=== PATIENT | female | born 1935 | race Caucasian/White ===

== ENCOUNTER 2023-11-25 10:22 | Outpatient (AMB) | payer MEDICARE, SELFPAY ==
--- NOTE | 2023-11-25 10:27 | MHC.PC.OV ---
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 Required: No Allergies morphine Allergy (Intermediate, Verified 11/25/23 10:32) Nausea Tobacco use date assessed: 11/25/23 Fall risk assessment: 2 + Falls in past year Last assessed Fall Risk: 11/25/23 Dental Screening Dental Screen Date: 11/25/23 Did you have a dental visit in the last 12 months?: Yes Did you have a dental problem in the last 6 months where you did not have access to dental care?: No Was dental information given to patient?: Patient has dentist HPI HPI Comments History of Present Illness Details This is an 88-year-old female with a past medical history of hypertension, hyperlipidemia, impaired fasting glucose, degenerative disc disease of the lumbar spine, dermatitis and right-sided back pain presenting to [facility]. She transferred from [facility] primary care. Hypertension-treated with atenolol 50 mg and amlodipine 5 mg. Denies dizziness, chest pain or shortness of breath. She brought a list of home readings: November 08 133/61, heart rate 56 November 10 123/71, heart rate 55 November 16 107/61, heart rate 64 November 17 125/70, heart rate 64 November 18 104/54, heart rate 57 November 20 123/67, heart rate 61 November 21 124/61, heart rate 63 November 23 126/70, heart rate 66 Hyperlipidemia-treated with atorvastatin 40 mg daily. Anxiety is treated with Lexapro 10 mg daily. This is working well. She found out yesterday her daughter was diagnosed with colon cancer. Right lower back pain/DISH-she is putting off physical therapy for now, but she still has the referral. She knows when to rest and how much activity to do to avoid increasing pain. Constipation-she tried Benefiber, she is increasing fiber in her diet and having fluids. She has an appointment with Gastroenterology in the next 2 weeks at [facility] for further evaluation. She says her last colonoscopy was a few years ago. She denies blood in her stools, abdominal pain, weight loss, nausea, vomiting. She had a CT scan of her abdomen and pelvis with IV contrast while at the ER in 07/30/2023 for abdominal pain which showed small bowel contents fecalized which was nonspecific and could be seen with slow small bowel transit, ileocecal valve reflux or SIBO. External labs reviewed from 06/29/2023: Hemoglobin A1c 5.2% Total cholesterol 165 Triglycerides 145 HDL 53 LDL 83 Creatinine 0.9 GFR 62 WBC 5.4 RBC 4.86 HGB 14.4 HCT 42.6 Platelet count 211 PFSH Medical History DISH (diffuse idiopathic skeletal hyperostosis) Impaired fasting glucose Right-sided low back pain without sciatica Constipation Hypertension Hyperlipidemia Family History (Updated 11/25/23 @ 11:02 by Bernadette Marsh) Mother HTN (hypertension) Thyroid disorder Father HTN (hypertension) Cardiovascular disease Alcohol abuse Maternal Grandfather Cardiovascular disease Thyroid disorder Other FH: mental illness Substance use [facility] Tobacco Use Status: Never used Tobacco e-Cigarette/Vaping Use: Never Used service: No Current occupational status: retired Current occupational exposures/hazards: No Cognitive needs: No Hearing needs: No Vision needs: Yes Questionnaire PHQ-9 Over the last 2 weeks, how often have you been bothered by any of the following problems? 1. Little interest or pleasure in doing things: not at all 2. Feeling down, depressed, or hopeless: not at all 3. Trouble falling or staying asleep, or sleeping too much: not at all 4. Feeling tired or having little energy: not at all 5. Poor appetite or overeating: not at all 6. Feeling bad about yourself - or that you are a failure or have let yourself or your family down: not at all 7. Trouble concentrating on things, such as reading the newspaper or watching television: not at all 8. Moving or speaking so slowly that other people could have noticed. Or the opposite - being so fidgety or restless that you have been moving around a lot more than usual: not at all 9. Thoughts that you would be better off or of hurting yourself in some way: not at all Total score: 0 Depression Screening Interpretation: Negative Depression Screening Done: Yes 95413 - PHQ-9 Billing: Yes Source: Developed by Drs. Deacon Arias, Shahida Leach, Bryan Cervantes and colleagues, with an educational zia from [employer]. Thrive Questionnaire Date Thrive assessed: 11/25/23 I am a: Patient What is your living situation today?: I have a steady place to live Within the past 12 months, did the food you bought not last and you didn't have the money to get more?: Never true Within the past 12 months, did you worry whether your food would run out before you got money to buy more?: Never true Do you have trouble paying for medicines?: No Do you have trouble getting transportation to medical appointments?: No Do you have trouble paying your heating and electricity bill?: Yes Do you have trouble taking care of your child, family member or friend?: No Do you have trouble with day-to-day activities such as bathing, preparing meals, shopping, managing finances, etc.?: No Are you currently unemployed and looking for a job?: No Are you interested in more education?: No Please select the resources that you would like help with: None Currently or been in a relationship where the following occur: no concerns reported THRIVE Score: 1 AUDIT C Alcohol Use Questionnaire (AUDIT-C) 1. How often do you have a drink containing alcohol?: Monthly or less 2. How many drinks containing alcohol do you have on a typical day when you are drinking?: 1 or 2 (one glass of wine a day) 3. How often do you have six or more drinks on one occasion?: Never Total Score: 1 PHONG-7 AMB Questionnaire PHONG-7 Date PHONG - 7 assessed: 11/25/23 Feeling nervous, anxious, or on edge: 1 = Several days Not being able to stop or control worryin = Several days Worrying too much about different things: 1 = Several days Trouble relaxin = Not at all Being so restless that it is hard to sit still: 0 = Not at all Becoming easily annoyed or irritable: 0 = Not at all Feeling afraid as if something awful might happen: 0 = Not at all Total PHONG-7 score (0-4 normal; 5-9 mild; 10-14 moderate; 15-21 severe): 3 Source: Developed by Drs. Deacon Arias, Shahida Leach, Bryan Cervantes and colleagues, with an educational zia from [employer]. PHONG-7 Assessment Billing PHONG-7 Assessment Tool: PHONG-7 Assessment 51413 Physical exam (Primary Care) Vital Signs: Last Vital Signs Temp 97 F 11/25/23 10:30 Pulse 60 11/25/23 11:08 BP 104/66 11/25/23 10:30 Oxygen Flow Rate 98 11/25/23 10:30 BMI result Body Mass Index 24.0 Tobacco/Smoking Status: Tobacco use Status Tobacco use date assessed 11/25/23 11/25/23 10:46 Patient Tobacco Use Status Never used Tobacco 11/25/23 10:46 e-Cigarette/Vaping Use Never Used 11/25/23 10:46 PHQ-9: PHQ-9 Score PHQ-9: Total score 0 11/25/23 10:59 Depression Screening Interpretation: Negative Thrive Assessment: Date of Thrive Assessment Date Thrive assessed 11/25/23 11/25/23 10:56 Currently or been in a relationship where the following occur: no concerns reported Const Other: Constitutional: Alert, in no distress. Head: Normocephalic. Eyes: Pupils are equal, round and reactive to light. Extraocular muscles intact. Neck: Supple, Full range of motion. No lymphadenopathy. Respiratory: Clear to auscultation. Cardiovascular: S1 S2 regular. No murmurs. Gastrointestinal: Abdomen soft, non-tender, non-distended. Normal bowel sounds. No palpable masses. Psychiatric: Normal mood and affect Assessment and Plan Assessment & Plan (1) Hypertension: Code(s): I10 - Essential (primary) hypertension Qualifiers: Hypertension type: primary hypertension Qualified Code(s): I10 - Essential (primary) hypertension Plan: Controlled. Continue current regimen. Continue low-sodium diet and avoidance of tobacco use. (2) Hyperlipidemia: Code(s): E78.5 - Hyperlipidemia, unspecified Plan: LDL at goal. Continue atorvastatin. Mediterranean diet recommended. (3) Constipation: Code(s): K59.00 - Constipation, unspecified Plan: Continue to stay hydrated and increase fiber and can use Benefiber or MiraLax. Reviewed CT results. Patient has an appointment coming up with Gastroenterology. (4) Impaired fasting glucose: Code(s): R73.01 - Impaired fasting glucose Plan: Avoid sugary foods and eat carbohydrates in moderation. Continue to monitor hemoglobin A1c. Orders: Orders Hemoglobin A1c 4 Months I10 - Essential (primary) hypertension, R73.01 - Impaired fasting glucose Basic Metabolic Panel 4 Months I10 - Essential (primary) hypertension, R73.01 - Impaired fasting glucose Coding Level of Care Code Est Pt Level 4 (29276) Diagnoses Primary hypertension I10 Hypertension type: primary hypertension Hyperlipidemia E78.5 Constipation K59.00 Impaired fasting glucose R73.01 Additional Codes PHONG-7 Assessment Billing - PHONG-7 Assessment Tool: PHONG-7 Assessment 10521 ([id number])
[2023-11-25 10:30] VITALS: BP 104/66; TEMP 36.1; BMI 24.0
[2023-11-25 11:08] VITALS: PULSE 60
== END 2023-11-25 11:19 | disposition home or self-care (01) ==
PROVIDERS: PCP Physician Assistant Medical; Visit Provider Physician Assistant Medical
DX: I10 Essential (primary) hypertension (principal); E78.5 Hyperlipidemia, unspecified; K59.00 Constipation, unspecified; R73.01 Impaired fasting glucose
CPT/HCPCS: 99214

== ENCOUNTER 2024-02-27 11:29 | Outpatient (AMB) | payer MEDICARE, SELFPAY ==
--- NOTE | 2024-02-27 11:31 | A.OFFPC_ITS ---
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 Required: No Is last menstrual period known: No Post menopausal: No Patient : No Allergies morphine Allergy (Intermediate, Verified 02/27/24 11:34) Nausea Tobacco use date assessed: 02/27/24 Fall risk assessment: 1 Fall in past year Last assessed Fall Risk: 02/27/24 Dental Screening Dental Screen Date: 02/27/24 Did you have a dental visit in the last 12 months?: Yes Did you have a dental problem in the last 6 months where you did not have access to dental care?: No Was dental information given to patient?: Patient has dentist HPI HPI Comments History of Present Illness Details This is an 88-year-old female with a past medical history of hypertension, hyperlipidemia, impaired fasting glucose, degenerative disc disease of the lumbar spine, dermatitis and right-sided back pain presenting for follow up. Hypertension-treated with atenolol 50 mg and amlodipine 5 mg. Denies dizziness, chest pain or shortness of breath. Hyperlipidemia-treated with atorvastatin 40 mg daily. Anxiety is treated with Lexapro 10 mg daily. This is working well. Her d ivy was recently diagnosed with colon cancer. Her daughter and her grandson are currently staying with her in her 1 bedroom condominium. She feels overwhelmed, but she knows this is not permanent. She continues to worry about her daughter's well-being, but she has other family members who are in the medical field that are going to appointments with her which makes the patient feel better. Right lower back pain/DISH-she is putting off physical therapy for now, but she still has the referral. She knows when to rest and how much activity to do to avoid increasing pain. She does not take pain medications. Constipation-she saw [facility]. She was prescribed MiraLax. She has not seen much improvement, but it has only been a few days. She tried Benefiber, she is increasing fiber in her diet and having fluids. She denies blood in her stools, abdominal pain, weight loss, nausea, vomiting. She had a CT scan of her abdomen and pelvis with IV contrast while at the ER in 07/30/2023 for abdominal pain which showed small bowel contents fecalized which was nonspecific and could be seen with slow small bowel transit, ileocecal valve reflux or SIBO. External labs reviewed from 06/29/2023: Hemoglobin A1c 5.2% Total cholesterol 165 Triglycerides 145 HDL 53 LDL 83 Creatinine 0.9 GFR 62 WBC 5.4 RBC 4.86 HGB 14.4 HCT 42.6 Platelet count 211 Patient said she has some red discoloration on the back of her scalp. She noticed it at least 8 months ago after she fell and bumped her head. The pattern of hair growth around this area has changed. It does not itch. It does not painful. ROS: Constitutional: No unexplained weight loss, fever, chills, fatigue or night sweats. Eyes: No vision changes, blurry vision, double vision, eye pain, eye redness, eye discharge. ENT: No hearing loss, sneezing, congestion, runny nose or sore throat. Respiratory: No shortness of breath, cough or sputum production. Cardiovascular: No chest pain, chest pressure or chest discomfort. No palpitations or pedal edema. Gastrointestinal: No anorexia, nausea, vomiting or diarrhea. No abdominal pain or blood in stool. Genitourinary: No dysuria, hematuria, urinary frequency. Neurologic: No headache, dizziness, syncope Psychiatric: No depression. Physical exam: Constitutional: Alert, in no distress. Eyes: Pupils are equal, round and reactive to light. Extraocular muscles intact. Neck: Supple, Full range of motion. No lymphadenopathy. Respiratory: Clear to auscultation. Cardiovascular: S1 S2 regular. No murmurs. Neurologic: No focal neurological deficits Extremities: Warm and well perfused. 1+ bilateral lower extremity edema. Psychiatric: Normal mood and affect Scalp: Red, dry rash near the occipital area on the scalp. No open wounds. [facility] Medical History DISH (diffuse idiopathic skeletal hyperostosis) Impaired fasting glucose Right-sided low back pain without sciatica Constipation Hypertension Hyperlipidemia Family History (Updated 11/25/23 @ 11:02 by Bernadette Marsh) Mother HTN (hypertension) Thyroid disorder Father HTN (hypertension) Cardiovascular disease Alcohol abuse Maternal Grandfather Cardiovascular disease Thyroid disorder Other FH: mental illness Substance use Social History Housing: Condominium Patient Tobacco Use Status: Never used Tobacco e-Cigarette/Vaping Use: Never Used Patient : No service: No Current occupational status: retired Current occupational exposures/hazards: No Cognitive needs: No Hearing needs: No Vision needs: Yes Questionnaire Thrive Questionnaire Date Thrive assessed: 11/25/23 PHONG-7 AMB Questionnaire PHONG-7 Date PHONG - 7 assessed: 11/25/23 Source: Developed by Drs. Deacon Arias, Shahida Leach, Bryan Cervantes and colleagues, with an educational zia from [employer]. Physical exam (Primary Care) Vital Signs: Last Vital Signs Temp 97.8 F 02/27/24 11:39 Pulse 62 02/27/24 11:39 Resp 16 02/27/24 11:39 BP 102/64 02/27/24 11:39 Pulse Ox 97 02/27/24 11:39 Oxygen Delivery Method Room Air 02/27/24 11:39 BMI result Body Mass Index 23.6 Tobacco/Smoking Status: Tobacco use Status Tobacco use date assessed 02/27/24 02/27/24 11:41 Patient Tobacco Use Status Never used Tobacco 02/27/24 11:41 e-Cigarette/Vaping Use Never Used 02/27/24 11:41 Thrive Assessment: Date of Thrive Assessment Date Thrive assessed 11/25/23 02/27/24 11:41 Assessment and Plan Assessment & Plan (1) Hypertension: Code(s): I10 - Essential (primary) hypertension Qualifiers: Hypertension type: primary hypertension Qualified Code(s): I10 - Essential (primary) hypertension Plan: Decrease amlodipine to 2.5 mg. Advised patient to send home readings over the portal in a few weeks from my review. Continue atenolol 50 mg daily. Continue low-sodium diet and avoidance of tobacco use. (2) Hyperlipidemia: Code(s): E78.5 - Hyperlipidemia, unspecified Plan: LDL at goal. Continue atorvastatin. Mediterranean diet recommended. (3) Constipation: Code(s): K59.00 - Constipation, unspecified Plan: Continue to stay hydrated and increase fiber and take medication as prescribed by Gastroenterology. (4) Impaired fasting glucose: Code(s): R73.01 - Impaired fasting glucose Plan: Avoid sugary foods and eat carbohydrates in moderation. Continue to monitor hemoglobin A1c. (5) Rash: Code(s): R21 - Rash and other nonspecific skin eruption Plan: Refer to dermatology. Plan Follow up in 6 months. Orders: Referrals Dermatology Referral R21 - Rash and other nonspecific skin eruption Medications: New amlodipine 2.5 mg PO DAILY 90 tabs 1RF Coding Level of Care Code Est Pt Level 4 (46164) Diagnoses Primary hypertension I10 Hypertension type: primary hypertension Hyperlipidemia E78.5 Constipation K59.00 Impaired fasting glucose R73.01 Rash R21
[2024-02-27 11:39] VITALS: BP 102/64; PULSE 62; RESP 16; TEMP 36.6; O2SAT 97; BMI 23.6
== END 2024-02-27 13:03 | disposition home or self-care (01) ==
PROVIDERS: PCP Physician Assistant Medical; Visit Provider Physician Assistant Medical
DX: I10 Essential (primary) hypertension (principal); E78.5 Hyperlipidemia, unspecified; K59.00 Constipation, unspecified; R73.01 Impaired fasting glucose; R21 Rash and other nonspecific skin eruption

== ENCOUNTER → 2024-02-27 11:29 | Outpatient (BNVA) | payer MEDICARE, SELFPAY | PROVIDERS: PCP Physician Assistant Medical; Visit Provider Physician Assistant Medical | DX: I10 Essential (primary) hypertension (principal); E78.5 Hyperlipidemia, unspecified; R73.01 Impaired fasting glucose; R21 Rash and other nonspecific skin eruption; K59.00 Constipation, unspecified | CPT/HCPCS: 99212 ==

== ENCOUNTER 2024-03-30 11:46 | Outpatient (AMB) | payer MEDICARE, SELFPAY ==
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
[2024-03-30 11:56] VITALS: BP 108/68; PULSE 58; O2SAT 95; BMI 23.4
== END 2024-03-30 12:21 | disposition home or self-care (01) ==
PROVIDERS: PCP Physician Assistant Medical; Visit Provider Physician Assistant Medical
DX: M54.9 Dorsalgia, unspecified (principal); G89.29 Other chronic pain; E78.5 Hyperlipidemia, unspecified; I10 Essential (primary) hypertension; R73.01 Impaired fasting glucose

== ENCOUNTER 2024-03-30 12:31 | Outpatient (REF) | payer MEDICARE, SELFPAY ==
[2024-03-30 14:46] LABS: Estimated Average Glucose 97 mg/dL; Hemoglobin A1C 114.7617 umol/L; Total Hemoglobin (HGBA1C) 3648.2269 umol/L
[2024-03-30 15:08] LABS: Anion Gap 10 (12-20); Blood Urea Nitrogen 9 mg/dL (9-16); Calcium 9.3 mg/dL (8.4-10.2); Carbon Dioxide 30 mmol/L (22-29); Chloride 104 mmol/L (96-108); Estimated Glomerular Filt Rate > 60; Glucose Random 117 mg/dL (60-115); Potassium 3.8 mmol/L (3.3-5.1); Sodium 140 mmol/L (135-145)
== END 2024-03-30 12:32 | disposition home or self-care (01) ==
LOC: HO.WFDLDS 12:31
PROVIDERS: Visit Provider Physician Assistant Medical
DX: R73.01 Impaired fasting glucose (principal); I10 Essential (primary) hypertension
CPT/HCPCS: 36415; 80048; 83036; 99212

== ENCOUNTER 2024-05-04 13:13 | Outpatient (REF) | payer MEDICARE, SELFPAY | END 2024-05-04 13:14 | disposition home or self-care (01) | LOC: HO.MRI 13:13 | PROVIDERS: PCP Physician Assistant Medical; Visit Provider Physician Assistant Medical | DX: M54.9 Dorsalgia, unspecified (principal); G89.29 Other chronic pain | CPT/HCPCS: 72146; 72148 ==

== ENCOUNTER → 2024-05-04 13:20 | Outpatient (BNV) | payer MEDICARE, SELFPAY | PROVIDERS: PCP Physician Assistant Medical; Visit Provider Radiology Diagnostic Radiology | DX: M54.9 Dorsalgia, unspecified (principal) | CPT/HCPCS: 72148 ==

== ENCOUNTER 2024-06-11 14:53 | Outpatient (AMB) | payer MEDICARE, SELFPAY ==
--- NOTE | 2024-06-11 14:56 | A.OFFPC_ITS ---
Vital Signs 06/11/24 15:02 Height 5 ft 5.04 in Weight 140 lb BMI 23.3 BP 138/70 Blood Pressure Location Rt brachial Position Sitting Respiration 13 Pulse 57 Pulse Source Pulse Oximeter Pulse Oximetry (%) 97 Oxygen Delivery Method Room Air Intake Visit Reasons: Stress and feeling sick Intake Note: stress, mris, check mag Advanced Seal Delivery System Required: No Allergies morphine Allergy (Intermediate, Verified 06/11/24 14:57) Nausea Tobacco use date assessed: 02/27/24 Dental Screening Dental Screen Date: 02/27/24 HPI HPI Comments History of Present Illness Details This is an 89-year-old female with a past medical history of hypertension, hyperlipidemia, impaired fasting glucose, degenerative disc disease of the lumbar spine, dermatitis and right-sided back pain presenting for discussion about stress. Anxiety is treated with Lexapro 10 mg daily. We have discussed increased stress and anxiety recently related to her family. Her daughter is being treated for colon cancer. She has a month left for chemotherapy, and then she has a 2 month break before surgery. Her daughter and grandson are currently staying in her 1 bedroom condominium. She drives her grandson to work every day at 06:00. They are working to find another living situation. Patient says that her granddamervin espinoza child is currently in the custody of her granddaughters sister and . It is upsetting because she says they drink a lot, and they only want custody because they received money from the state for him. Her granddaughter's mother is now fighting for custody of the child. Her sister was also just diagnosed with leukemia, and her other sister is now legally blind due to macular degeneration. She feels that anxiety and stress are really starting to impact her. She is sleeping, but her appetite is decreased. When she does not eat enough she gets dizzy. She feels fatigued and forgetful. She would like her magnesium level checked. Hypertension-treated with atenolol 50 mg. Denies dizziness, chest pain or shortness of breath. Hyperlipidemia-treated with atorvastatin 40 mg daily. Right lower back pain/DISH- we have talked about physical therapy, but she feels that it would be too difficult because of her back pain. She knows when to rest and how much activity to do to avoid increasing pain. She does not take any medication for pain because she does not want to depend on them. She had surgery in 1988 and 1989 for herniated discs at [facility] with Dr. Kruger. She continues to endorse pain in the middle of her back that radiates down her spine to both sides of her lower back. Her back is very stiff. She has difficulty with mobility. Denies loss of bowel or bladder control, numbness, weakness. No foot drop. No recent injury. She had a CT of the thoracic and lumbar spine on 08/14/2023 at [facility] which showed the spine appeared diffusely demineralized with no fractures or suspicious osseous lesions. There were mild degenerative changes throughout the thoracolumbar spine. She had MRIs of the thoracic and lumbar spine in April this year, but the results are still pending. We contacted Radiology today to have them read. ROS: Constitutional: 4 lb weight loss since November which she is attributing to decreased appetite secondary to stress. No fevers chills or night sweats. +fatigue Eyes: No vision changes, blurry vision, double vision, eye pain, eye redness, eye discharge.. Respiratory: No shortness of breath, cough or sputum production. Cardiovascular: No chest pain, chest pressure or chest discomfort. No palpitations or pedal edema. Gastrointestinal: No anorexia, nausea, vomiting or diarrhea. No abdominal pain or blood in stool. Genitourinary: No dysuria, hematuria, urinary frequency. Neurologic: No headache, syncope, numbness, extremity weakness Psychiatric: +depression and anxiety. No SI or HI. Physical exam: Constitutional: Alert, in no distress. Eyes: Pupils are equal, round and reactive to light. Extraocular muscles intact. Neck: Supple, Full range of motion. No lymphadenopathy. Respiratory: Clear to auscultation. Cardiovascular: S1 S2 regular. No murmurs. Abdomen: Soft, nontender, no palpable masses Neurologic: No focal neurological deficits Extremities: Warm and well perfused. 1+ bilateral lower extremity edema. [facility] Medical History (Updated 06/11/24 @ 16:44 by NACHO Mcwilliams) Anxiety Fatigue Chronic back pain DISH (diffuse idiopathic skeletal hyperostosis) Impaired fasting glucose Right-sided low back pain without sciatica Constipation Hypertension Hyperlipidemia Family History (Updated 11/25/23 @ 11:02 by Bernadette Marsh MA) Mother HTN (hypertension) Thyroid disorder Father HTN (hypertension) Cardiovascular disease Alcohol abuse Maternal Grandfather Cardiovascular disease Thyroid disorder Other FH: mental illness Substance use Social History Housing: Condominium Patient Tobacco Use Status: Never used Tobacco e-Cigarette/Vaping Use: Never Used service: No Current occupational status: retired Current occupational exposures/hazards: No Cognitive needs: No Hearing needs: No Vision needs: Yes Questionnaire PHQ-9 Over the last 2 weeks, how often have you been bothered by any of the following problems? 1. Little interest or pleasure in doing things: not at all 2. Feeling down, depressed, or hopeless: several days 3. Trouble falling or staying asleep, or sleeping too much: several days 4. Feeling tired or having little energy: several days 5. Poor appetite or overeating: several days 6. Feeling bad about yourself - or that you are a failure or have let yourself or your family down: not at all 7. Trouble concentrating on things, such as reading the newspaper or watching television: several days 8. Moving or speaking so slowly that other people could have noticed. Or the opposite - being so fidgety or restless that you have been moving around a lot more than usual: not at all 9. Thoughts that you would be better off or of hurting yourself in some way: not at all Total score: 5 51943 - PHQ-9 Billing: Yes Source: Developed by Drs. Deacon Arias, Shahida Leach, Bryan Cervantes and colleagues, with an educational zia from [employer]. Thrive Questionnaire Date Thrive assessed: 06/11/24 I am a: Patient What is your living situation today?: I have a steady place to live Within the past 12 months, did the food you bought not last and you didn't have the money to get more?: I choose not to answer this question Within the past 12 months, did you worry whether your food would run out before you got money to buy more?: I choose not to answer this question Do you have trouble paying for medicines?: No Do you have trouble getting transportation to medical appointments?: No Do you have trouble paying your heating and electricity bill?: No Do you have trouble taking care of your child, family member or friend?: I choose not to answer this question Do you have trouble with day-to-day activities such as bathing, preparing meals, shopping, managing finances, etc.?: No Are you currently unemployed and looking for a job?: No Are you interested in more education?: No Please select the resources that you would like help with: None Currently or been in a relationship where the following occur: I choose not to answer THRIVE Score: 0 AUDIT C Alcohol Use Questionnaire (AUDIT-C) 1. How often do you have a drink containing alcohol?: Monthly or less 2. How many drinks containing alcohol do you have on a typical day when you are drinking?: 1 or 2 3. How often do you have six or more drinks on one occasion?: Never Total Score: 1 PHONG-7 AMB Questionnaire PHONG-7 Date PHONG - 7 assessed: 06/11/24 Feeling nervous, anxious, or on edge: 1 = Several days Not being able to stop or control worryin = More than half the days Worrying too much about different things: 2 = More than half the days Trouble relaxin = Several days Being so restless that it is hard to sit still: 1 = Several days Source: Developed by Drs. Deacon Arias, Shahida Leach, Bryan Cervantes and colleagues, with an educational zia from [employer]. PHONG-7 Assessment Billing PHONG-7 Assessment Tool: PHONG-7 Assessment 26997 Physical exam (Primary Care) Vital Signs: Last Vital Signs Pulse 57 06/11/24 15:02 Resp 13 06/11/24 15:02 BP 138/70 06/11/24 15:02 Pulse Ox 97 06/11/24 15:02 Oxygen Delivery Method Room Air 06/11/24 15:02 BMI result Body Mass Index 23.3 Tobacco/Smoking Status: Tobacco use Status Tobacco use date assessed 02/27/24 06/11/24 15:05 Patient Tobacco Use Status Never used Tobacco 06/11/24 15:05 e-Cigarette/Vaping Use Never Used 06/11/24 15:05 PHQ-9: PHQ-9 Score PHQ-9: Total score 5 06/11/24 15:05 Thrive Assessment: Date of Thrive Assessment Date Thrive assessed 06/11/24 06/11/24 15:05 Currently or been in a relationship where the following occur: I choose not to answer Coding Level of Care Code Est Pt Level 4 (16259) Complex EM visit Add On G2211 Diagnoses Fatigue R53.83 Anxiety F41.9 Additional Codes PHONG-7 Assessment Billing - PHONG-7 Assessment Tool: PHONG-7 Assessment 98197 ([id number]) PHQ-9 - 76294 - PHQ-9 Billing: Yes ([id number]) Assessment & Plan Assessment & Plan (1) Fatigue: Code(s): R53.83 - Other fatigue Category: Medical (2) Anxiety: Code(s): F41.9 - Anxiety disorder, unspecified Category: Medical Plan Patient today endorses increased anxiety and some depressive symptoms that are mild which are secondary to anxiety. She has psychosocial stressors currently. She declined referral to Psychology. We will continue escitalopram 10 mg (recommended max daily dose for her age range) and try buspirone 5 mg twice daily. Side effects and administration reviewed. She will have labs done today to check for underlying causes. Follow up in 3 weeks. Orders: Orders Comprehensive Met. Panel Today R53.83 - Other fatigue Vitamin D 1,25 dihydroxy Today M48.10 - Ankylosing hyperostosis [[place]], site unspecified Vitamin B12 Today R53.83 - Other fatigue, Z91.89 - Other specified personal risk factors, not elsewhere classified TSH reflex Free T4 Today R53.83 - Other fatigue Complete Blood Count no Diff Today R53.83 - Other fatigue Magnesium Today R53.83 - Other fatigue Medications: New buspirone 5 mg PO BID 60 tabs 0RF
[2024-06-11 15:02] VITALS: BP 138/70; PULSE 57; RESP 13; O2SAT 97; BMI 23.3
== END 2024-06-11 15:55 | disposition home or self-care (01) ==
PROVIDERS: PCP Physician Assistant Medical; Visit Provider Physician Assistant Medical
DX: R53.83 Other fatigue (principal); F41.9 Anxiety disorder, unspecified

== ENCOUNTER → 2024-06-11 14:53 | Outpatient (BNVA) | payer MEDICARE, SELFPAY | PROVIDERS: PCP Physician Assistant Medical; Visit Provider Physician Assistant Medical | DX: R53.83 Other fatigue (principal); F41.9 Anxiety disorder, unspecified; I10 Essential (primary) hypertension; E78.5 Hyperlipidemia, unspecified; Z79.899 Other long term (current) drug therapy | CPT/HCPCS: 96127; 99212 ==

== ENCOUNTER 2024-06-15 15:11 | Outpatient (REF) | payer MEDICARE, SELFPAY ==
[2024-06-15 17:54] LABS: Hemoglobin 14.1 g/dl (12.0-16.0); Mean Corpuscular HGB Conc 34.4 g/dl (31.0-35.0); Mean Corpuscular Hemoglobin 30.3 pg (27.0-33.0); Mean Platelet Volume 9.5 fL (9.4-12.3); Platelet Count 209 X10*3/uL (160-400); Red Blood Count 4.66 X10*6/uL (4.20-5.50); White Blood Count 7.3 X10*3/uL (4.8-10.8)
[2024-06-15 18:16] LABS: Alanine Aminotransferase 25 U/L (0-31); Alkaline Phosphatase 69 U/L (39-117); Anion Gap 8 (12-20); Aspartate Amino Transferase 25 U/L (5-31); Bilirubin Total 1.1 mg/dL (0.0-1.0); Blood Urea Nitrogen 8 mg/dL (9-16); Calcium 8.8 mg/dL (8.4-10.2); Carbon Dioxide 29 mmol/L (22-29); Chloride 107 mmol/L (96-108); Estimated Glomerular Filt Rate > 60; Glucose Random 111 mg/dL (60-115); Magnesium 1.8 mg/dL (1.6-2.6); Potassium 3.5 mmol/L (3.3-5.1); Sodium 140 mmol/L (135-145); Total Protein 6.6 g/dL (6.5-8.0)
[2024-06-15 18:32] LABS: TSH reflex Free T4 1.64 uIU/mL (0.32-4.0)
[2024-06-15 18:34] LABS: Vitamin B12 231 pg/mL (200-900)
[2024-06-20 08:23] LABS: VITAMIN D (1,25 OH) D3 62 pg/mL; Vit D (1,25-Dihydroxy) Total 62 pg/mL (18-72); Vitamin D (1,25 OH) D2 <8 pg/mL
== END 2024-06-15 15:12 | disposition home or self-care (01) ==
LOC: HO.WFDLDS 15:11
PROVIDERS: Visit Provider Physician Assistant Medical
DX: M48.10 Ankylosing hyperostosis [Forestier], site unspecified (principal); R53.83 Other fatigue; Z91.89 Other specified personal risk factors, not elsewhere classified
CPT/HCPCS: 36415; 80053; 82607; 82652; 83735; 84443; 85027

== ENCOUNTER 2024-07-28 11:31 | Outpatient (REF) | payer MEDICARE, SELFPAY ==
--- NOTE | ~2024-07-28 | XR_ITS ---
CLINICAL HISTORY: J90 - Pleural effusion, not elsewhere classified 2 view chest x-ray Comparison: None Findings: The lungs are clear. Normal size heart. No acute fracture. IMPRESSION: 1. No acute findings. This document has been electronically signed by: Jaz Whittaker MD on 07/28/2024 13:18:29
== END 2024-07-28 11:32 | disposition home or self-care (01) ==
LOC: HO.XRAY 11:31
PROVIDERS: PCP Physician Assistant Medical; Visit Provider Physician Assistant Medical
DX: J90 Pleural effusion, not elsewhere classified (principal)
CPT/HCPCS: 71046

== ENCOUNTER → 2024-07-28 11:41 | Outpatient (BNV) | payer MEDICARE, SELFPAY | PROVIDERS: PCP Physician Assistant Medical; Visit Provider Radiology Diagnostic Radiology | DX: J90 Pleural effusion, not elsewhere classified (principal) | CPT/HCPCS: 71046 ==

== ENCOUNTER 2024-07-30 11:37 | Outpatient (AMB) | payer MEDICARE, SELFPAY ==
--- NOTE | 2024-07-30 11:42 | MHC.PC.OV ---
Vital Signs 07/30/24 11:47 Height 5 ft 5.04 in Weight 134 lb 4 oz BMI 22.3 BP 98/66 Blood Pressure Location Rt brachial Position Sitting Respiration 12 Pulse 64 Pulse Source Pulse Oximeter Temp 96.9 F Temp Source Oral Pulse Oximetry (%) 98 Oxygen Delivery Method Room Air Intake Visit Reasons: follow up med check Intake Note: follow up on med check Linen Supervisor Required: No Allergies morphine Allergy (Intermediate, Verified 07/30/24 11:43) Nausea Medication List - Last Reconciled 07/30/24 by NACHO Mcwilliams buspirone 5 mg PO BID cephalexin mg PO Q12H cyanocobalamin (vitamin B-12) 1,000 mcg PO DAILY escitalopram oxalate 10 mg PO DAILY oxybutynin chloride ER 5 mg PO ONCE Tobacco use date assessed: 07/30/24 Fall risk assessment: 2 + Falls in past year Last assessed Fall Risk: 07/30/24 Dental Screening Dental Screen Date: 07/30/24 Did you have a dental visit in the last 12 months?: No Did you have a dental problem in the last 6 months where you did not have access to dental care?: No Was dental information given to patient?: Patient declined HPI HPI Comments History of Present Illness Details This is an 89-year-old female with a past medical history of hypertension, hyperlipidemia, impaired fasting glucose, degenerative disc disease of the lumbar spine, dermatitis and right-sided back pain presenting for hospital follow up. The patient was seen initially at the emergency department on July 09 2024 for weakness, falls, vomiting and she was diagnosed with a urinary tract infection, influenza a and dehydration. She also had an EKG with a left bundle branch block and QTC is slightly prolonged. She was found to have hyponatremia, hypokalemia and hypocalcemia. She was given IV fluids and tre melany and food. She was discharged on antibiotics. She returned to [facility] on 07/13/2024 for continued dizzy spells, gait instability, falls and generalized weakness. EKG then showed normal sinus rhythm. She was then treated with Rocephin and discharged on cephalexin 500 mg twice daily for 5 days. Supportive care for influenza. She was evaluated by PT and has home PT and OT currently. She stayed with her son following hospitalization, but now she has been home for the last 5 days. On her discharge paperwork Lexapro was discontinued. She is still taking buspirone. She was also discharged on amlodipine 5 mg in addition to her atenolol 50 mg daily. She is mildly hypotensive today. She does not feel dizzy today, but she is still quite fatigued. She lost 6 lb during the course of the illness. She is trying to make an effort to eat 3 times a day, but she does not have a great appetite. Her appetite was actually reduced prior to hospitalization due to increased anxiety and stress over her family circumstances. She feels mentally exhausted. She has been under a lot of stress still. She has a 1 bedroom condominium. Patient said she asked her grandson to leave because he was taking advantage of the situation and drinking alcohol and was very rude to her. She feels sad about this, but it was the right decision. Her daughter is still living with her. Her daughter is being treated for colon cancer. ROS: Constitutional: No fevers, chills or night sweats. +fatigue. +weight loss. Eyes: No vision changes, blurry vision, double vision Respiratory: No shortness of breath, cough or sputum production. Cardiovascular: No chest pain, chest pressure or chest discomfort. No palpitations or pedal edema. Gastrointestinal: No anorexia, nausea, vomiting or diarrhea. No abdominal pain or blood in stool. Genitourinary: No dysuria, hematuria, urinary frequency. Neurologic: No headache, dizziness, syncope, unilateral weakness, ataxia, numbness or tingling in the extremities. Skin: No rash Psychiatric: No SI/HI. Physical exam: Constitutional: Alert, in no distress. Head: Atraumatic Eyes: Pupils are equal, round and reactive to light. Extraocular muscles intact. Ear, Nose and Throat: Canals clear. TMs normal. Normal nasal mucosa. No nasal discharge. No oral lesions. Neck: Supple, Full range of motion. No lymphadenopathy Respiratory: Clear to auscultation. Cardiovascular: S1 S2 regular. No murmurs. Gastrointestinal: Abdomen soft, non-tender, non-distended. Normal bowel sounds. No palpable masses. Genitourinary: No costovertebral angle tenderness. Neurologic: No focal neurological deficits.Moves all extremities spontaneously. Sensation intact bilaterally. Speech is clear. Answers questions appropriately. Skin: No rashes Extremities: Warm and well perfused. No clubbing, cyanosis or edema. Psychiatric: Normal mood and affect [facility] Medical History (Updated 07/31/24 @ 09:09 by NACHO Mcwilliams) Hospital discharge follow-up Bilateral pleural effusion Lumbar degenerative disc disease Anxiety Fatigue Chronic back pain DISH (diffuse idiopathic skeletal hyperostosis) Impaired fasting glucose Right-sided low back pain without sciatica Constipation Hypertension Hyperlipidemia Family History (Updated 11/25/23 @ 11:02 by Bernadette Marsh MA) Mother HTN (hypertension) Thyroid disorder Father HTN (hypertension) Cardiovascular disease Alcohol abuse Maternal Grandfather Cardiovascular disease Thyroid disorder Other FH: mental illness Substance use Social History Housing: Condominium Patient Tobacco Use Status: Never used Tobacco e-Cigarette/Vaping Use: Never Used service: No Current occupational status: retired Current occupational exposures/hazards: No Cognitive needs: No Hearing needs: No Vision needs: Yes Questionnaire PHQ-9 Over the last 2 weeks, how often have you been bothered by any of the following problems? 69387 - PHQ-9 Billing: Patient declined-do not bill Source: Developed by Drs. Deacon Arias, Shahida Leach, Bryan Cervantes and colleagues, with an educational zia from [employer]. Thrive Questionnaire Date Thrive assessed: 07/30/24 I am a: Patient What is your living situation today?: I have a steady place to live Within the past 12 months, did the food you bought not last and you didn't have the money to get more?: I choose not to answer this question Within the past 12 months, did you worry whether your food would run out before you got money to buy more?: I choose not to answer this question Do you have trouble paying for medicines?: No Do you have trouble getting transportation to medical appointments?: No Do you have trouble paying your heating and electricity bill?: No Do you have trouble taking care of your child, family member or friend?: I choose not to answer this question Do you have trouble with day-to-day activities such as bathing, preparing meals, shopping, managing finances, etc.?: No Are you currently unemployed and looking for a job?: No Are you interested in more education?: No Please select the resources that you would like help with: None Currently or been in a relationship where the following occur: I choose not to answer THRIVE Score: 0 PHONG-7 AMB Questionnaire PHONG-7 Date PHONG - 7 assessed: 07/30/24 Feeling nervous, anxious, or on edge: 0 = Not at all Not being able to stop or control worryin = Not at all Worrying too much about different things: 0 = Not at all Trouble relaxin = Not at all Being so restless that it is hard to sit still: 0 = Not at all Becoming easily annoyed or irritable: 0 = Not at all Feeling afraid as if something awful might happen: 0 = Not at all Total PHONG-7 score (0-4 normal; 5-9 mild; 10-14 moderate; 15-21 severe): 0 Source: Developed by Drs. Deacon Arias, Shahida Leach, Bryan Cervantes and colleagues, with an educational zia from [employer]. PHONG-7 Assessment Billing PHONG-7 Assessment Tool: PHONG-7 Assessment 30150 Physical exam (Primary Care) Vital Signs: Last Vital Signs Temp 96.9 F 07/30/24 11:47 Pulse 64 07/30/24 11:47 Resp 12 07/30/24 11:47 BP 98/66 07/30/24 11:47 Pulse Ox 98 07/30/24 11:47 Oxygen Delivery Method Room Air 07/30/24 11:47 BMI result Body Mass Index 22.3 Tobacco/Smoking Status: Tobacco use Status Tobacco use date assessed 07/30/24 07/30/24 11:50 Patient Tobacco Use Status Never used Tobacco 07/30/24 11:42 e-Cigarette/Vaping Use Never Used 07/30/24 11:42 Thrive Assessment: Date of Thrive Assessment Date Thrive assessed 07/30/24 07/30/24 11:42 Currently or been in a relationship where the following occur: I choose not to answer Coding Level of Care Code Est Pt Level 5 (17591) Complex EM visit Add On G2211 Diagnoses Hospital discharge follow-up Z09 Anxiety F41.9 Fatigue R53.83 Additional Codes PHONG-7 Assessment Billing - PHONG-7 Assessment Tool: PHONG-7 Assessment 25590 ([id number]) Time Spent (min) 46 Comment Chart review, direct patient care, completing documentation Assessment & Plan Assessment & Plan (1) Hospital discharge follow-up: Code(s): Z09 - Encounter for follow-up examination after completed treatment for conditions other than malignant neoplasm Category: Medical (2) Anxiety: Code(s): F41.9 - Anxiety disorder, unspecified Category: Medical (3) Fatigue: Code(s): R53.83 - Other fatigue Category: Medical Plan In summary 89-year-old female with a past medical history of hypertension and anxiety presenting for hospital discharge follow up following recent influenza a infection, urinary tract infection, dehydration and electrolyte disturbances. All of this undoubtedly exacerbated her fatigue and anxiety. She completed antibiotics. Recommended consult with psychologist and psychiatrist, but she declines for now. She is agreeable to continuing outpatient PT and OT in home. It is a little unclear from the notes why Lexapro was discontinued, but it may have been due to mildly prolonged QTC. She will remain off of this for now. Discussed the importance of strengthening and rehabilitating. I have recommended she try boost or ensure at least once a day to increase her protein intake, and she is making a great effort to eat 3 meals per day. She also is getting meals from the [employer]. Given mild hypotension today. Atenolol 50 mg and start atenolol 25 mg daily. Continue amlodipine 5 mg daily. She is going to repeat her urinalysis and culture today to make sure the UTI has resolved, and we will also check electrolytes and her CBC. Liver enzymes were mildly elevated at the hospital which was likely due to her illness, but I will recheck them. Warning signs warranting re-evaluation at ED reviewed. Close follow up in 1 week. Orders: Orders Complete Blood Count Auto Diff 07/30/24 R53.83 - Other fatigue UA w Microscopic 07/30/24 R39.9 - Unspecified symptoms and signs involving the genitourinary system Comprehensive Met. Panel 07/30/24 R53.83 - Other fatigue Magnesium 07/30/24 R53.83 - Other fatigue Urine Culture 07/30/24 R39.9 - Unspecified symptoms and signs involving the genitourinary system Medications: New amlodipine 5 mg PO DAILY atenolol Replaces Atenolol 50 mg daily. 25 mg PO DAILY 90 tabs 0RF Discontinued nitrofurantoin macrocrystal must administer with a meal/food Discontinued Reason: Doctor's Order 100 mg PO BID 5 days 10 caps 0RF Patient Instructions: Stop Atenolol 50mg and start Atenolol 25 mg daily. Continue Amlodipine 5 mg daily. These medications are for blood pressure. Please continue physical and occupation therapy. Please try Boost or Ensure to increase weight and get protein. Eat 3 meals per day. We will do labs today to recheck everything from the hospital.
[2024-07-30 11:47] VITALS: BP 98/66; PULSE 64; RESP 12; TEMP 36.1; O2SAT 98; BMI 22.3
== END 2024-07-30 12:25 | disposition home or self-care (01) ==
PROVIDERS: PCP Physician Assistant Medical; Visit Provider Physician Assistant Medical
DX: Z09 Encounter for follow-up examination after completed treatment for conditions other than malignant neoplasm (principal); F41.9 Anxiety disorder, unspecified; R53.83 Other fatigue

== ENCOUNTER 2024-07-30 12:41 | Outpatient (REF) | payer MEDICARE, SELFPAY ==
[2024-07-30 14:12] LABS: MANUAL DIFF FLAG NO
[2024-07-30 14:18] LABS: Basophils Percent Auto 0.5 % (0-2); Eosinophils Absolute Auto 0.1 X10*3/uL (0.0-0.4); Eosinophils Percent Auto 0.8 % (0-4); Hematocrit 37.1 % (37.0-47.0); Hemoglobin 12.5 g/dl (12.0-16.0); Imm Gran Abs Auto 0.03 X10*3/uL (0.00-0.03); Imm Gran Pct Auto 0.4 % (0.0-0.4); Lymphocytes Absolute Auto 1.4 X10*3/uL (1.2-4.9); Lymphocytes Percent Auto 18.7 % (20-40); Mean Corpuscular HGB Conc 33.7 g/dl (31.0-35.0); Mean Corpuscular Hemoglobin 29.8 pg (27.0-33.0); Mean Corpuscular Volume 88.3 fL (80.0-98.0); Mean Platelet Volume 9.4 fL (9.4-12.3); Monocytes Absolute Auto 0.4 X10*3/uL (0.1-1.2); Neutrophils Absolute Auto 5.4 x10*3/uL (2.0-8.3); Neutrophils Percent Auto 73.6 % (45-73); Platelet Count 302 X10*3/uL (160-400); Red Cell Distribution Width 12.9 % (11.0-16.0); White Blood Count 7.3 X10*3/uL (4.8-10.8)
[2024-07-30 14:37] LABS: Alanine Aminotransferase 18 U/L (0-31); Albumin Level 3.6 g/dL (3.5-5.0); Alkaline Phosphatase 83 U/L (39-117); Anion Gap 10 (12-20); Aspartate Amino Transferase 21 U/L (5-31); Bilirubin Total 0.6 mg/dL (0.0-1.0); Blood Urea Nitrogen 9 mg/dL (9-16); Calcium 9.3 mg/dL (8.4-10.2); Carbon Dioxide 28 mmol/L (22-29); Chloride 105 mmol/L (96-108); Estimated Glomerular Filt Rate > 60; Glucose Random 102 mg/dL (60-115); Magnesium 1.9 mg/dL (1.6-2.6); Potassium 3.9 mmol/L (3.3-5.1); Sodium 139 mmol/L (135-145)
== END 2024-07-30 12:42 | disposition home or self-care (01) ==
LOC: HO.WFDLDS 12:41
PROVIDERS: Visit Provider Physician Assistant Medical
DX: Z09 Encounter for follow-up examination after completed treatment for conditions other than malignant neoplasm (principal); F41.9 Anxiety disorder, unspecified; R53.83 Other fatigue; I10 Essential (primary) hypertension; E78.5 Hyperlipidemia, unspecified; R39.9 Unspecified symptoms and signs involving the genitourinary system; Z79.899 Other long term (current) drug therapy
CPT/HCPCS: 36415; 80053; 83735; 85025; 96127; 99212

== ENCOUNTER 2024-08-06 13:24 | Outpatient (REF) | payer MEDICARE, SELFPAY | END 2024-08-06 13:25 | disposition home or self-care (01) | LOC: HO.LAB 13:24 | PROVIDERS: PCP Physician Assistant Medical; Visit Provider Physician Assistant Medical | DX: F41.9 Anxiety disorder, unspecified (principal); R53.83 Other fatigue; I10 Essential (primary) hypertension; Z87.440 Personal history of urinary (tract) infections; Z79.899 Other long term (current) drug therapy | CPT/HCPCS: 81002; 99212 ==

== ENCOUNTER 2024-08-06 13:24 | Outpatient (AMB) | payer MEDICARE, SELFPAY ==
--- NOTE | 2024-08-06 13:33 | A.OFFPC_ITS ---
Vital Signs 08/06/24 13:38 Height 5 ft 5.04 in Weight 134 lb 4 oz BMI 22.3 BP 118/68 Blood Pressure Location Rt brachial Position Sitting Respiration 13 Pulse 60 Pulse Source Pulse Oximeter Temp 97.1 F Temp Source Oral Pulse Oximetry (%) 97 Oxygen Delivery Method Room Air Intake Visit Reasons: follow up Ed visits Intake Note: Follow up ED visit Conservation Agent Required: No Allergies morphine Allergy (Intermediate, Verified 08/06/24 13:33) Nausea Tobacco use date assessed: 08/06/24 Fall risk assessment: 2 + Falls in past year Last assessed Fall Risk: 08/06/24 Dental Screening Dental Screen Date: 08/06/24 Did you have a dental visit in the last 12 months?: Yes Did you have a dental problem in the last 6 months where you did not have access to dental care?: No Was dental information given to patient?: Patient has dentist HPI HPI Comments History of Present Illness Details This is an 89-year-old female with a past medical history of hypertension, hyperlipidemia, impaired fasting glucose, degenerative disc disease of the spine, dermatitis and right-sided back pain presenting for follow up. I saw the patient on 07/30/2024 for hospital follow up. She has been admitted in early July due to a UTI, influenza a and dehydration as well as electrolyte disturbances. She was treated with Rocephin and discharged on Keflex. She completed antibiotics. She had also been under a great deal of stress. Her blood pressure was soft when I saw her, and she was still feeling very fatigued. We reduced her dose of atenolol from 50 mg to 25 mg. She is still taking amlodipine 5 mg. Her blood pressure today and heart rate are normal. She denies dizziness. Her energy level is better. She was discharged from PT and OT. She is eating better and also started drinking boost. She is using her cane. Her stress level has also improved. Her grandson who was living with her moved out and is in rehab for alcoholism. Her daughter is taking a trip to [place], and when she returns she will have surgery. She is in the process of completing treatment for colon cancer. She says that she is feeling better. I asked her to repeat labs at her last visit, and her blood count did not show evidence of anemia or leukocytosis. The electrolyte disturbances resolved. Renal function was normal as well as liver function tests. She did not give a sample for repeat urine dip and culture, so she is going to provide that today. She denies hematuria, frequency or dysuria. ROS: Constitutional: No unexplained weight loss, fever, chills or night sweats. Improving fatigue. Eyes: No vision changes, blurry vision, double vision Respiratory: No shortness of breath, cough or sputum production. Cardiovascular: No chest pain, chest pressure or chest discomfort. No palpitations or pedal edema. Gastrointestinal: No anorexia, nausea, vomiting or diarrhea. No abdominal pain or blood in stool. Genitourinary: No dysuria, hematuria, urinary frequency. Neurologic: No headache, dizziness, syncope Endocrine: No cold or heat intolerance. No polyuria or polydipsia. Physical exam: Constitutional: Alert, in no distress. Eyes: Pupils are equal, round and reactive to light. Extraocular muscles intact. Respiratory: Clear to auscultation. Cardiovascular: S1 S2 regular. No murmurs. Genitourinary: No costovertebral angle tenderness.. Extremities: Warm and well perfused. No clubbing, cyanosis or edema. Psychiatric: Normal mood and affect [facility] Medical History (Updated 08/06/24 @ 14:08 by NACHO Mcwilliams) History of UTI Hospital discharge follow-up Bilateral pleural effusion Lumbar degenerative disc disease Anxiety Fatigue Chronic back pain DISH (diffuse idiopathic skeletal hyperostosis) Impaired fasting glucose Right-sided low back pain without sciatica Constipation Hypertension Hyperlipidemia Family History (Updated 11/25/23 @ 11:02 by Bernadette Marsh MA) Mother HTN (hypertension) Thyroid disorder Father HTN (hypertension) Cardiovascular disease Alcohol abuse Maternal Grandfather Cardiovascular disease Thyroid disorder Other FH: mental illness Substance use Social History Housing: Condominium Patient Tobacco Use Status: Never used Tobacco e-Cigarette/Vaping Use: Never Used service: No Current occupational status: retired Current occupational exposures/hazards: No Cognitive needs: No Hearing needs: No Vision needs: Yes Questionnaire PHQ-9 Over the last 2 weeks, how often have you been bothered by any of the following problems? 90786 - PHQ-9 Billing: Patient declined-do not bill Source: Developed by Drs. Deacon Arias, Shahida B.W. Bryan Leach and colleagues, with an educational zia from [employer] (acquired by [employer]). Thrive Questionnaire Date Thrive assessed: 08/06/24 I am a: Patient What is your living situation today?: I have a steady place to live Within the past 12 months, did the food you bought not last and you didn't have the money to get more?: I choose not to answer this question Within the past 12 months, did you worry whether your food would run out before you got money to buy more?: I choose not to answer this question Do you have trouble paying for medicines?: No Do you have trouble getting transportation to medical appointments?: No Do you have trouble paying your heating and electricity bill?: No Do you have trouble taking care of your child, family member or friend?: I choose not to answer this question Do you have trouble with day-to-day activities such as bathing, preparing meals, shopping, managing finances, etc.?: No Are you currently unemployed and looking for a job?: No Are you interested in more education?: No Please select the resources that you would like help with: None Currently or been in a relationship where the following occur: I choose not to answer THRIVE Score: 0 PHONG-7 AMB Questionnaire PHONG-7 Date PHONG - 7 assessed: 07/30/24 Source: Developed by Drs. Deacon Arias, Bryan Dow and colleagues, with an educational zia from [employer] (acquired by [employer]). Physical exam (Primary Care) Vital Signs: Last Vital Signs Temp 97.1 F 08/06/24 13:38 Pulse 60 08/06/24 13:38 Resp 13 08/06/24 13:38 BP 118/68 08/06/24 13:38 Pulse Ox 97 08/06/24 13:38 Oxygen Delivery Method Room Air 08/06/24 13:38 BMI result Body Mass Index 22.3 Tobacco/Smoking Status: Tobacco use Status Tobacco use date assessed 08/06/24 08/06/24 13:35 Patient Tobacco Use Status Never used Tobacco 08/06/24 13:35 e-Cigarette/Vaping Use Never Used 08/06/24 13:35 Thrive Assessment: Date of Thrive Assessment Date Thrive assessed 08/06/24 08/06/24 13:35 Currently or been in a relationship where the following occur: I choose not to answer Coding Level of Care Code Est Pt Level 4 (72556) Complex EM visit Add On G2211 Diagnoses Anxiety F41.9 Fatigue R53.83 History of UTI Z87.440 Primary hypertension I10 Hypertension type: primary hypertension Assessment & Plan Assessment & Plan (1) Anxiety: Code(s): F41.9 - Anxiety disorder, unspecified Category: Medical (2) Fatigue: Code(s): R53.83 - Other fatigue Category: Medical (3) History of UTI: Code(s): Z87.440 - Personal history of urinary (tract) infections Category: Medical (4) Hypertension: Code(s): I10 - Essential (primary) hypertension Category: Medical Qualifiers: Hypertension type: primary hypertension Qualified Code(s): I10 - Essential (primary) hypertension Plan The patient is doing better. She has improved strength and energy, and she has had no further falls. She was discharged from PT and OT. She will continue home exercises per therapist's. Continue atenolol 25 mg and amlodipine 5 mg daily for hypertension. Continue to increase caloric intake. She is also drinking boost shakes. She will continue buspirone for anxiety. She continues to decline referral to a therapist or psychiatrist, but she is feeling better. The stressors at home have decreased. Urine dip with 1+ leuks today. No signs or symptoms of UTI s/p antibiotics. The urine sample was inadvertently disposed of before sending it for a culture. The patient was given a cup that she will return to the lab to send out for culture out of an abundance of caution. Follow up in 4 months for a medication review. Orders: Orders AMB Urinalysis Dipstick Today Z13.9 - Encounter for screening, unspecified Medications: New amlodipine 5 mg PO DAILY 90 tabs 3RF Refilled oxybutynin chloride ER 5 mg PO ONCE 90 tabs 3RF
[2024-08-06 13:38] VITALS: BP 118/68; PULSE 60; RESP 13; TEMP 36.2; O2SAT 97; BMI 22.3
== END 2024-08-06 16:03 | disposition home or self-care (01) ==
PROVIDERS: PCP Physician Assistant Medical; Visit Provider Physician Assistant Medical
DX: F41.9 Anxiety disorder, unspecified (principal); R53.83 Other fatigue; Z87.440 Personal history of urinary (tract) infections; I10 Essential (primary) hypertension; Z13.9 Encounter for screening, unspecified

== ENCOUNTER 2024-08-07 14:24 | Outpatient (REF) | payer MEDICARE, SELFPAY | END 2024-08-07 14:25 | disposition home or self-care (01) | LOC: HO.LNP 14:24 | PROVIDERS: Visit Provider Physician Assistant Medical | DX: R39.9 Unspecified symptoms and signs involving the genitourinary system (principal) | CPT/HCPCS: 87086 ==

== ENCOUNTER → 2024-08-25 23:59 | Outpatient (BNV) | payer MEDICARE, SELFPAY | PROVIDERS: PCP Physician Assistant Medical; Visit Provider Physician Assistant Medical | DX: N39.0 Urinary tract infection, site not specified (principal); J10.1 Influenza due to other identified influenza virus with other respiratory manifestations; E87.1 Hypo-osmolality and hyponatremia | CPT/HCPCS: G0180 ==

== ENCOUNTER 2024-09-14 14:58 | Outpatient (AMB) | payer MEDICARE, SELFPAY ==
--- NOTE | 2024-09-14 15:21 | MHC.PC.OV ---
Vital Signs 09/14/24 15:29 Height 5 ft 4 in Weight 131 lb 6 oz BMI 22.5 BP 122/68 Blood Pressure Location Rt brachial Position Sitting Respiration 14 Pulse 67 Pulse Source Pulse Oximeter Pulse Oximetry (%) 97 Oxygen Delivery Method Room Air Intake Visit Reasons: Confusion, discuss medications Intake Note: Mary Jo presents in the office today for some confusion. Patient wondering if its age or a past UTI she had. Would like to discuss her medications. Patient needs refills of her Oxybutynin, Vitamin B12, Busprione she is completely out of these medications. 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 Required: No Allergies morphine Allergy (Intermediate, Verified 09/14/24 15:26) Nausea Tobacco use date assessed: 09/14/24 Fall risk assessment: 2 + Falls in past year Last assessed Fall Risk: 09/14/24 Dental Screening Dental Screen Date: 09/14/24 Did you have a dental visit in the last 12 months?: Yes Did you have a dental problem in the last 6 months where you did not have access to dental care?: No Was dental information given to patient?: Patient has dentist HPI HPI Comments History of Present Illness Details This is an 89-year-old female with a past medical history of hypertension, hyperlipidemia, impaired fasting glucose, degenerative disc disease of the spine, dermatitis and right-sided back pain presenting for a problem visit. The patient says she has not been feeling like herself for the past 3 weeks. She endorses fatigue. She says it takes more mental effort to do tasks that she usually does easily. She has some difficulty with word finding and has to stop and think before she says things sometimes. She does not feel as ?sharp? as she usually does. She has also had more urinary incontinence and some bladder pressure. This worries her because of the UTI she had in July. She is on oxybutynin for chronic urinary incontinence. Denies slurred speech, headache, vision changes, numbness, tingling, weakness, dizziness, vertigo, falls or recent head or neck injury. I saw the patient on 07/30/2024 for hospital follow up. She has been admitted in early July due to a UTI, influenza a and dehydration as well as electrolyte disturbances. She was treated with Rocephin and discharged on Keflex. She completed antibiotics. She had also been under a great deal of stress. She was previously on Lexapro for anxiety which was discontinued during hospitalization in July presumably due to QT prolongation on her EKG. At the time she also had electrolyte abnormalities related to influenza, UTI and dehydration. Patient is on buspirone, and she was instructed to decrease from 5 mg twice daily to once a day the other day by the nurse after I got a message that she was feeling mentally foggy and tired. Patient says her anxiety level is actually doing better than previously. Her blood pressure is normal today on atenolol and amlodipine. We recently decreased her dose of am atenolol from 50-25 mg. ROS: Constitutional: +3 lb weight loss since last visit, no fevers or chills, no night sweats, +fatigue Eyes: No vision changes, blurry vision, double vision, eye pain, eye redness, eye discharge. ENT: No hearing loss, sneezing, congestion, runny nose or sore throat. Respiratory: No shortness of breath, cough or sputum production. Cardiovascular: No chest pain, chest pressure or chest discomfort. No palpitations or pedal edema. Gastrointestinal: No anorexia, nausea, vomiting or diarrhea. No abdominal pain or blood in stool. Genitourinary: No dysuria or hematuria, see HPI. No vaginal bleeding or discharge. Neurologic: No headache,syncope, seizure, tremor unilateral weakness, ataxia, numbness or tingling in the extremities. See HPI. Musculoskeletal: +chronic back pain, no new pains, joint pains or swelling Hematologic/Lymphatics: No bleeding or bruising. Skin: No rash Endocrine: No cold or heat intolerance. Psychiatric: See HPI. No SI or HI. Physical exam: Constitutional: Alert, in no distress. Appears mildly fatigued. Head: Normocephalic. Eyes: Pupils are equal, round and reactive to light. Extraocular muscles intact. Ear, Nose and Throat: Canals clear. TMs normal. Normal nasal mucosa. No nasal discharge. No oral lesions. Neck: Supple, Full range of motion. No lymphadenopathy. No palpable masses. Respiratory: Clear to auscultation. Cardiovascular: S1 S2 regular. No murmurs. No carotid bruits. Gastrointestinal: Abdomen soft, non-tender, non-distended. Normal bowel sounds. No palpable masses. Genitourinary: No costovertebral angle tenderness. Neurologic:?Alert and oriented x 3, no focal deficits observed, CN 2-12 intact, cltzyi-sizl-vdiibg normal, sensation equal and symmetric, strength UE and LE 4/5 bilaterally, reflexes equal and symmetric.? Normal gait.? No pronator drift.? Negative Romberg. Skin: No rashes Musculoskeletal: No gross deformities. Normal range of motion. Extremities: Warm and well perfused. No clubbing, cyanosis or edema. Intact peripheral pulses upper and lower extremities. Psychiatric: Normal mood and affect [facility] Medical History (Updated 09/14/24 @ 17:01 by NACHO Mcwilliams) Abnormal EKG Sensation of pressure in bladder area Urinary incontinence Word finding difficulty Confusion History of UTI Hospital discharge follow-up Bilateral pleural effusion Lumbar degenerative disc disease Anxiety Fatigue Chronic back pain DISH (diffuse idiopathic skeletal hyperostosis) Impaired fasting glucose Right-sided low back pain without sciatica Constipation Hypertension Hyperlipidemia Family History Mother HTN (hypertension) Thyroid disorder Father HTN (hypertension) Cardiovascular disease Alcohol abuse Maternal Grandfather Cardiovascular disease Thyroid disorder Other FH: mental illness Substance use Social History (Updated 09/14/24 @ 15:27 by Juanita Luna MA) Housing: Condominium Alcohol intake: current Patient Tobacco Use Status: Never used Tobacco e-Cigarette/Vaping Use: Never Used Second Hand Smoke Exposure: No service: No Current occupational status: retired Current occupational exposures/hazards: No Cognitive needs: No Hearing needs: No Vision needs: Yes Questionnaire PHQ-9 Over the last 2 weeks, how often have you been bothered by any of the following problems? 1. Little interest or pleasure in doing things: not at all 2. Feeling down, depressed, or hopeless: not at all 3. Trouble falling or staying asleep, or sleeping too much: not at all 4. Feeling tired or having little energy: not at all 5. Poor appetite or overeating: not at all 6. Feeling bad about yourself - or that you are a failure or have let yourself or your family down: not at all 7. Trouble concentrating on things, such as reading the newspaper or watching television: not at all 8. Moving or speaking so slowly that other people could have noticed. Or the opposite - being so fidgety or restless that you have been moving around a lot more than usual: not at all 9. Thoughts that you would be better off or of hurting yourself in some way: not at all Total score: 0 Depression Screening Interpretation: Negative Depression Screening Done: Yes 44389 - PHQ-9 Billing: Patient declined-do not bill Source: Developed by Drs. Deacon Arias, Shahida Leach, Bryan Cervantes and colleagues, with an educational zia from [employer]. Thrive Questionnaire Date Thrive assessed: 06/11/24 I am a: Patient What is your living situation today?: I have a steady place to live Within the past 12 months, did the food you bought not last and you didn't have the money to get more?: I choose not to answer this question Within the past 12 months, did you worry whether your food would run out before you got money to buy more?: I choose not to answer this question Do you have trouble paying for medicines?: No Do you have trouble getting transportation to medical appointments?: No Do you have trouble paying your heating and electricity bill?: No Do you have trouble taking care of your child, family member or friend?: I choose not to answer this question Do you have trouble with day-to-day activities such as bathing, preparing meals, shopping, managing finances, etc.?: No Are you currently unemployed and looking for a job?: No Are you interested in more education?: No Please select the resources that you would like help with: None Currently or been in a relationship where the following occur: I choose not to answer THRIVE Score: 0 PHONG-7 AMB Questionnaire PHONG-7 Date PHONG - 7 assessed: 09/14/24 Feeling nervous, anxious, or on edge: 1 = Several days Not being able to stop or control worryin = Several days Worrying too much about different things: 2 = More than half the days Trouble relaxin = Not at all Being so restless that it is hard to sit still: 1 = Several days Becoming easily annoyed or irritable: 1 = Several days Feeling afraid as if something awful might happen: 1 = Several days Total PHONG-7 score (0-4 normal; 5-9 mild; 10-14 moderate; 15-21 severe): 7 Source: Developed by Shahida Myles, Bryan Cervantes and colleagues, with an educational zia from [employer]. PHONG-7 Assessment Billing PHONG-7 Assessment Tool: PHONG-7 Assessment 51728 Physical exam (Primary Care) Vital Signs: Last Vital Signs Pulse 67 09/14/24 15:29 Resp 14 09/14/24 15:29 BP 122/68 09/14/24 15:29 Pulse Ox 97 09/14/24 15:29 Oxygen Delivery Method Room Air 09/14/24 15:29 BMI result Body Mass Index 22.5 Tobacco/Smoking Status: Tobacco use Status Tobacco use date assessed 08/06/24 09/14/24 15:23 Patient Tobacco Use Status Never used Tobacco 09/14/24 15:27 e-Cigarette/Vaping Use Never Used 09/14/24 15:27 Depression Screening Interpretation: Negative Thrive Assessment: Date of Thrive Assessment Date Thrive assessed 06/11/24 09/14/24 15:23 Currently or been in a relationship where the following occur: I choose not to answer Office Procedures EKG Details: Her EKG shows normal sinus rhythm with a heart rate of 61 beats per minute, left axis deviation, left ventricular hypertrophy with QRS widening, can not rule out anteroseptal infarct age undetermined [id number], Complete Coding Level of Care Code Est Pt Level 5 (69945) Complex EM visit Add On G2211 Diagnoses Word finding difficulty R47.89 Confusion R41.0 Urinary incontinence R32 Sensation of pressure in bladder area R39.89 Anxiety F41.9 CPT Codes EKG - CPT: 41687-[id number], Complete ([id number]) Additional Codes PHONG-7 Assessment Billing - PHONG-7 Assessment Tool: PHONG-7 Assessment 09116 ([id number]) Time Spent (min) 52 Comment Chart review, direct patient care, completing documentation Assessment & Plan Assessment & Plan (1) Word finding difficulty: Code(s): R47.89 - Other speech disturbances Category: Medical (2) Confusion: Code(s): R41.0 - Disorientation, unspecified Category: Medical (3) Urinary incontinence: Code(s): R32 - Unspecified urinary incontinence Category: Medical (4) Sensation of pressure in bladder area: Code(s): R39.89 - Other symptoms and signs involving the genitourinary system Category: Medical (5) Anxiety: Code(s): F41.9 - Anxiety disorder, unspecified Category: Medical Plan In summary this is an 89-year-old female with a past medical history of hypertension, hyperlipidemia and anxiety who presented today for 3 weeks of increased fatigue, mild mental status changes as described in HPI and urinary symptoms. Urine dip today positive for protein and leukocytes. She could not provide large enough sample to culture, so she is going to return to the lab tomorrow for this. Once that is collected she will start antibiotics while culture is pending. Take with food and have yogurt or probiotics. A UTI could cause her other symptoms however I am concerned about report of increase mental effort, some confusion and word-finding in the past 3 weeks. Neurologically she is intact on exam today. Reviewed signs and symptoms of CVA with the patient and when to seek emergent medical care. We will order MRI of the head and brain for further evaluation and to rule out other intracranial pathology. Her EKG today is abnormal but no acute ischemic changes or evidence of heart block. Reviewed EKG with Dr. Stout. Ordered echo and cardiology consult. Patient has no chest pain or dyspnea. Check labs for other underlying causes of symptoms including electrolyte disturbance, anemia, hypo/hyperthyroid. She will continue buspirone 5 mg for now. This can cause fatigue and brain fog in some patients. She was previously on Lexapro which was discontinued at the hospital. We could consider switching her to another SSRI like sertraline and discontinuing buspirone. She will follow up with me in 1 week. Orders: Orders AMB Urinalysis Dipstick Today Z13.9 - Encounter for screening, unspecified Urine Culture Today R39.9 - Unspecified symptoms and signs involving the genitourinary system TSH reflex Free T4 Today F41.9 - Anxiety disorder, unspecified, R41.0 - Disorientation, unspecified Magnesium Today F41.9 - Anxiety disorder, unspecified, R41.0 - Disorientation, unspecified AMB EKG-In Office Today R41.0 - Disorientation, unspecified MR head/brain wo con Today R41.0 - Disorientation, unspecified, R47.89 - Other speech disturbances UA w Microscopic Today R39.9 - Unspecified symptoms and signs involving the genitourinary system Complete Blood Count Auto Diff Today F41.9 - Anxiety disorder, unspecified, R41.0 - Disorientation, unspecified Comprehensive Met. Panel Today F41.9 - Anxiety disorder, unspecified, R41.0 - Disorientation, unspecified Vitamin B12 Today F41.9 - Anxiety disorder, unspecified, R41.0 - Disorientation, unspecified, Z91.89 - Other specified personal risk factors, not elsewhere classified Vitamin D 25-OH (D2 and D3) Today F41.9 - Anxiety disorder, unspecified, M85.80 - Other specified disorders of bone density and structure, unspecified site, R41.0 - Disorientation, unspecified CA echo transthoracic complete Today R94.31 - Abnormal electrocardiogram [ECG] [EKG] Referrals Cardiology Referral R94.31 - Abnormal electrocardiogram [ECG] [EKG] Medications: New nitrofurantoin monohyd/m-cryst 100 mg (Macrobid) must administer with a meal/food 100 mg PO BID 14 caps 0RF Refilled cyanocobalamin (vitamin B-12) 1,000 mcg PO DAILY 90 tabs 1RF oxybutynin chloride ER 5 mg PO ONCE 90 tabs 3RF
[2024-09-14 15:29] VITALS: BP 122/68; PULSE 67; RESP 14; O2SAT 97; BMI 22.5
== END 2024-09-14 16:31 | disposition home or self-care (01) ==
LOC: HO.HMCFM 14:59
PROVIDERS: PCP Physician Assistant Medical; Visit Provider Physician Assistant Medical
DX: R47.89 Other speech disturbances (principal); R41.0 Disorientation, unspecified; R32 Unspecified urinary incontinence; R39.89 Other symptoms and signs involving the genitourinary system; F41.9 Anxiety disorder, unspecified

== ENCOUNTER 2024-09-14 14:58 | Outpatient (REF) | payer MEDICARE, SELFPAY | END 2024-09-14 14:59 | disposition home or self-care (01) | LOC: HO.LAB 14:58 | PROVIDERS: PCP Physician Assistant Medical; Visit Provider Physician Assistant Medical | DX: R47.89 Other speech disturbances (principal); R41.0 Disorientation, unspecified; R32 Unspecified urinary incontinence; R39.89 Other symptoms and signs involving the genitourinary system; F41.9 Anxiety disorder, unspecified; I10 Essential (primary) hypertension; E78.5 Hyperlipidemia, unspecified | CPT/HCPCS: 93005; 96127; 99212 ==

== ENCOUNTER 2024-09-15 08:36 | Outpatient (REF) | payer MEDICARE, SELFPAY ==
[2024-09-15 11:14] LABS: MANUAL DIFF FLAG NO
[2024-09-15 11:16] LABS: Appearance Urine Clear; Color Urine Yellow; Glucose Urine UA Negative (Negative); Leukocyte Esterase Urine Trace (Negative); Nitrite Urine Negative (Negative); PH 7.5 (5.0-9.0); UMIC TRIGGER UA YES; Urine Blood Negative (Negative); Urine Ketones Negative (Negative); Urine Protein Negative (Neg-Trace)
[2024-09-15 11:22] LABS: Bacteria Urine None Seen (None Seen); Hyaline Casts Urine 0-2 /LPF (0-2); RBC Urine 0-2 /HPF (0-2); Squamous Epithelial Cell Urine 0-2 /HPF (0-2); WBC Urine 0-5 /HPF (0-5)
[2024-09-15 11:44] LABS: Basophils Percent Auto 0.6 % (0-2); Eosinophils Absolute Auto 0.1 X10*3/uL (0.0-0.4); Eosinophils Percent Auto 2.3 % (0-4); Hematocrit 47.3 % (37.0-47.0); Imm Gran Abs Auto 0.01 X10*3/uL (0.00-0.03); Imm Gran Pct Auto 0.2 % (0.0-0.4); Lymphocytes Absolute Auto 1.1 X10*3/uL (1.2-4.9); Lymphocytes Percent Auto 21.4 % (20-40); Mean Corpuscular Hemoglobin 29.4 pg (27.0-33.0); Mean Corpuscular Volume 86.5 fL (80.0-98.0); Mean Platelet Volume 9.1 fL (9.4-12.3); Monocytes Absolute Auto 0.3 X10*3/uL (0.1-1.2); Monocytes Percent Auto 5.8 % (2-11); Neutrophils Absolute Auto 3.6 x10*3/uL (2.0-8.3); Neutrophils Percent Auto 69.7 % (45-73); Platelet Count 204 X10*3/uL (160-400); Red Blood Count 5.47 X10*6/uL (4.20-5.50); Red Cell Distribution Width 12.9 % (11.0-16.0); White Blood Count 5.2 X10*3/uL (4.8-10.8)
[2024-09-15 11:50] LABS: Alanine Aminotransferase 15 U/L (0-31); Albumin Level 3.9 g/dL (3.5-5.0); Alkaline Phosphatase 71 U/L (39-117); Anion Gap 12 (12-20); Aspartate Amino Transferase 23 U/L (5-31); Bilirubin Total 0.8 mg/dL (0.0-1.0); Blood Urea Nitrogen 14 mg/dL (9-16); Calcium 9.4 mg/dL (8.4-10.2); Carbon Dioxide 29 mmol/L (22-29); Chloride 105 mmol/L (96-108); Estimated Glomerular Filt Rate > 60; Glucose Random 107 mg/dL (60-115); Magnesium 1.9 mg/dL (1.6-2.6); Potassium 3.6 mmol/L (3.3-5.1); Sodium 142 mmol/L (135-145); Total Protein 6.7 g/dL (6.5-8.0)
[2024-09-15 11:52] LABS: Hemoglobin 16.1 g/dl (12.0-16.0)
[2024-09-15 12:00] LABS: Vitamin B12 920 pg/mL (200-900)
[2024-09-20 17:49] LABS: Vitamin D 25-OH, D2 <4 ng/mL; Vitamin D 25-OH, D3 48 ng/mL; Vitamin D 25-OH, Total 48 ng/mL (30-100)
== END 2024-09-15 08:37 | disposition home or self-care (01) ==
LOC: HO.WFDLDS 08:36
PROVIDERS: Visit Provider Physician Assistant Medical
DX: R41.0 Disorientation, unspecified (principal); R39.9 Unspecified symptoms and signs involving the genitourinary system; F41.9 Anxiety disorder, unspecified; Z91.89 Other specified personal risk factors, not elsewhere classified; M85.80 Other specified disorders of bone density and structure, unspecified site
CPT/HCPCS: 36415; 80053; 81001; 82306; 82607; 83735; 84443; 85025; 87086

== ENCOUNTER → 2024-09-17 08:58 | Outpatient (REF) | payer MEDICARE, SELFPAY ==
--- NOTE | 2024-09-17 09:01 | CA_ITS ---
Transthoracic Echocardiogram Patient (Last, First, Middle): Mary Jo Delgado, Gender: Female Date of : 1935 Age: 89 Procedure Date: 09/17/2024 Procedure Type: Transthoracic Echocardiogram Location: OP Height: 162.56 cm Weight: 59.42 kg BSA: 1.63 m2 Heart Rate: bpm BP: 122 / 68 mmHg Pmo Consultant: ANIRUDH Referring MD: [place] GRIFFITH Laundry Assistant: Raji Fleming MD Symptoms: R94.31 - Abnormal electrocardiogram [ECG] [EKG] Study Quality: Adequate ECG Rhythm: Sinus Conclusions: - 1. Normal LV ejection fraction of 60 65% with impaired relaxation filling pattern 2. Cardiac valvular Dopplers within normal limits 3. Upper limits of normal ascending aortic size 4. Normal RV systolic pressure 5. No pericardial effusion Findings Left Ventricle Normal left ventricular size, thickness, and systolic function. The visually estimated ejection fraction is between 60-65%. Spectral Doppler is indicative of an impaired relaxation filling pattern. E/E prime ratio is between 8 and 15 consistent with indeterminate filling pressures. Right Ventricle Normal right ventricular cavity size and systolic function. Atria Both atria are normal in size. There is lipomatous hypertrophy of the interatrial septum. There is no evidence of interatrial shunt. Aortic Valve There is mild calcification of the aortic valve. There is no aortic valve stenosis. There is no aortic valve regurgitation. Mitral Valve There is mild anterior and posterior mitral leaflet thickening. There is trace mitral valve regurgitation. There is no mitral valve stenosis. Pulmonic Valve The pulmonic valve is likely normal. Tricuspid Valve Normal tricuspid valve structure. There is mild tricuspid valve regurgitation. The right ventricular systolic pressure is normal. The right ventricular systolic pressure is 32 mmHg. Normal right atrial pressure. There is no evidence of pulmonary hypertension. Great Vessels The pulmonary artery was not well visualized. Moderate plaque is seen in the sino tubular ridge. Venous The inferior vena cava is normal in size and collapses greater than 50% with inspiration. Pericardium/Pleural There is no evidence of pericardial effusion. Prior Study Comparison No prior study available for comparison. Measurements 2D Linear Measurements IVSd: 1.00 0.6-0.9/0.6-1.0 cm LVIDd: 4.69 3.9-5.3/4.2-5.9 cm LVIDd Index: 2.88 2.4-3.2/2.2-3.1 cm/m2 LVIDs: 3.19 2.0-3.6 cm LVPWd: 0.73 0.7-1.1 cm LA Diam: 2.90 2.7-3.8/3.0-4.0 cm LAIDs Index: 1.78 1.5-2.3 cm/m2 LV Mass: 167.52 67-162/88-224 g LV Mass Index: 102.77 43-95/49-115 g/m2 LVOT Diam: 2.00 3.0+(-)1.3 cm 2D Systolic Function EF 4C: 63.80 >55% EF 2C: 64.90 >55% EF BiP: 64.50 >55% Mitral Valve MV Pk E: 0.45 MV PK A: 0.91 MV Decel Time: 352.00 E/A: 0.50 E'Lateral: 4.35 E'Medial: 2.83 E/E' Med: 15.90 E/E' Lat: 10.30 PHT: 103.00 MVA PHT: 2.14 Decel [place]: 1.28 Aortic Valve AoV Pk [place]: 1.53 AoV Mn [place]: 1.13 AoV VTI: 0.33 AoV Pk Grad: 9.00 Aov Mn Grad: 5.00 ANY Cont.VTI: 2.11 LVOT LVOT Pk [place]: 1.10 LVOT Mn [place]: 0.78 LVOT VTI: 0.22 LVOT Pk Grad: 5.00 LVOT Mn Grad: 3.00 LVOT Diam: 2.00 LVOT Area: 3.14 Diastolic Function MV Pk E: 0.45 MV Pk A: 0.91 E/A: 0.50 E'Medial: 2.83 E/E' Med: 15.90 E' Laterial: 4.35 E/E' Lat: 10.30 Right Ventricle TAPSE (mm): 26.10 TVS' [place]: 9.25 Tricuspid Valve TR Pk [place]: 2.70 TR Pk Grad: 29.00 RA Press: 3.00 RVSP: 32.00 Great Vessels Aorta Sinus of Valsalva: 2.91 2.0-3.[address] [place]: 2.07 1.7-3.4 cm Ao Asc: 3.50 2.1-3.4 cm Updated in Other Vendor System with Status of Final Raji Fleming MD electronically signed on 09/18/2024 2:46:42 PM with status of Final
== END ==
LOC: HO.CARD 08:58
PROVIDERS: PCP Physician Assistant Medical; Visit Provider Physician Assistant Medical
DX: R94.31 Abnormal electrocardiogram [ECG] [EKG] (principal)
CPT/HCPCS: 93306

== ENCOUNTER → 2024-09-17 09:01 | Outpatient (BNV) | payer MEDICARE, SELFPAY | PROVIDERS: PCP Physician Assistant Medical; Visit Provider Internal Medicine Cardiovascular Disease | DX: R94.31 Abnormal electrocardiogram [ECG] [EKG] (principal) | CPT/HCPCS: 93306 ==

== ENCOUNTER → 2024-09-17 15:05 | Outpatient (BNV) | payer MEDICARE, SELFPAY | PROVIDERS: PCP Physician Assistant Medical; Visit Provider Radiology Diagnostic Radiology | DX: I67.82 Cerebral ischemia (principal); G31.89 Other specified degenerative diseases of nervous system | CPT/HCPCS: 70551 ==

== ENCOUNTER 2024-09-17 15:06 | Outpatient (REF) | payer MEDICARE, SELFPAY ==
--- NOTE | ~2024-09-17 | MR_ITS ---
EXAMINATION: MR BRAIN WITHOUT CONTRAST CLINICAL INFORMATION: Speech disturbances, confusion, memory loss after fall beginning of July. COMPARISON: None available. TECHNIQUE: MRI of the brain was obtained using routine sequences without contrast. Examination performed on a 1.5 Capri high-field scanner. FINDINGS: There is no diffusion restriction. There is no intracranial hemorrhage, acute infarction, mass effect, or edema. Ventricles, sulci, and cisterns are somewhat diffusely prominent, in keeping with age-related cerebral and cerebellar volume loss. There are somewhat more prominent extra-axial spaces overlying the bilateral frontal lobes. No shift of midline. No abnormal hemosiderin deposition is identified. There are a numerous punctate and mildly confluent foci of white matter T2 hyperintensity in the periventricular, subcortical, and hemispheric deep white matter, and central nas. These are nonspecific but statistically most likely on the basis of small vessel ischemia. Midline structures appear normally formed. Partial empty sella. Posterior fossa structures appear normal. Cerebellar tonsils are appropriately located. Major flow voids are preserved within the skull base. The globes and orbital contents are normal aside from bilateral lens replacements. Paranasal sinuses are clear bilaterally. The mastoids and tympanic cavities are normally aerated. Extracranial soft tissues demonstrate no abnormalities. No suspicious bone marrow changes are evident. Atlantoaxial joint demonstrates mild degenerative arthritis. Mild degenerative changes in the bilateral TM joints. MR/MR head/brain wo con IMPRESSION: 1. No evidence of intracranial hemorrhage, acute infarction, mass effect, or edema. 2. Moderate changes of small vessel ischemia. 3. There is bifrontal atrophy. Electronically signed by: Kevin Soler MD 09/17/2024 04:18 PM EDT
== END 2024-09-17 15:07 | disposition home or self-care (01) ==
LOC: HO.MRI 15:06
PROVIDERS: PCP Physician Assistant Medical; Visit Provider Physician Assistant Medical
DX: R47.89 Other speech disturbances (principal); R41.0 Disorientation, unspecified; R94.31 Abnormal electrocardiogram [ECG] [EKG]
CPT/HCPCS: 70551; 93306

== ENCOUNTER → 2024-09-21 10:51 | Outpatient (BNVA) | payer MEDICARE, SELFPAY | PROVIDERS: PCP Physician Assistant Medical; Visit Provider Physician Assistant Medical | DX: R47.89 Other speech disturbances (principal); F41.9 Anxiety disorder, unspecified; R41.89 Other symptoms and signs involving cognitive functions and awareness; I10 Essential (primary) hypertension; E78.5 Hyperlipidemia, unspecified | CPT/HCPCS: 96127; 99212 ==

== ENCOUNTER 2024-09-21 11:53 | Outpatient (AMB) | payer MEDICARE, SELFPAY ==
--- NOTE | 2024-09-21 11:05 | MHC.PC.OV ---
Vital Signs 09/21/24 11:13 Height 5 ft 4 in Weight 130 lb 2 oz BMI 22.3 BP 116/70 Blood Pressure Location Rt brachial Position Sitting Respiration 12 Pulse 59 Pulse Source Pulse Oximeter Temp 97.4 F Temp Source Temporal Artery Scan Pulse Oximetry (%) 97 Oxygen Delivery Method Room Air Intake Visit Reasons: discuss meds, UTI sx, results 30 min Intake Note: Mary Jo presents in the office toady for a follow up to discuss medication, UTI diagnosis and results. Patient needs a refill of her Oxybutynin. Allergies morphine Allergy (Intermediate, Verified 09/21/24 11:07) Nausea Tobacco use date assessed: 09/21/24 Fall risk assessment: 2 + Falls in past year Last assessed Fall Risk: 09/21/24 Dental Screening Dental Screen Date: 09/21/24 Did you have a dental visit in the last 12 months?: Yes Did you have a dental problem in the last 6 months where you did not have access to dental care?: No Was dental information given to patient?: Patient has dentist HPI HPI Comments History of Present Illness Details This is an 89-year-old female with a past medical history of hypertension, hyperlipidemia, impaired fasting glucose, degenerative disc disease of the spine, dermatitis and right-sided back pain presenting for follow up. I saw her a week ago and she reported the following: The patient says she has not been feeling like herself for the past 3 weeks. She endorses fatigue. She says it takes more mental effort to do tasks that she usually does easily. She has some difficulty with word finding and has to stop and think before she says things sometimes. She does not feel as ?sharp? as she usually does. She has also had more urinary incontinence and some bladder pressure. This worries her because of the UTI she had in July. She is on oxybutynin for chronic urinary incontinence. Denies slurred speech, headache, vision changes, numbness, tingling, weakness, dizziness, vertigo, falls or recent head or neck injury. Patient reports her mother had Alzheimer's dementia. She reports sleeping 9 hours per night. Patient drinks half to 1 glass of wine during the week at night mixed with club soda. The patient's neurologic exam was intact. The patient had lab work on 09/15/2024. CBC demonstrated no anemia or leukocytosis. CMP, B12, vitamin-D, TSH and urinalysis were normal. Her urine culture was negative for UTI. She had an MRI of the brain on 09/17/2024 which demonstrated age-related cerebral and cerebellar volume loss with somewhat more prominent extra-axial spaces overlying the bilateral frontal lobes. There was also evidence of macrovascular ischemia. Her MMSE score is 30 today. She reduced her dose of buspirone to 5 mg once a day instead of twice a day, and she does feel a little better cognitively since making this change. She was previously on Lexapro for years for anxiety which helped, but it was discontinued due to hospitalization in July presumably due to QT prolongation on EKG. At the time she also had electrolyte abnormalities and influenza and was dehydrated. ROS: Constitutional: + 1 lb weight loss since last visit, no fevers or chills, no night sweats, +fatigue Eyes: No vision changes, blurry vision, double vision, eye pain, eye redness, eye discharge. Respiratory: No shortness of breath, cough or sputum production. Cardiovascular: No chest pain, chest pressure or chest discomfort. No palpitations or pedal edema. Gastrointestinal: No anorexia, nausea, vomiting or diarrhea. No abdominal pain or blood in stool. Neurologic: No headache,syncope, seizure, tremor unilateral weakness, ataxia, numbness or tingling in the extremities. See HPI. Musculoskeletal: +chronic back pain, no new pains, joint pains or swelling Endocrine: No cold or heat intolerance. Psychiatric: See HPI. No SI or HI. Physical exam: Constitutional: Alert, in no distress. Well-appearing today. Eyes: Pupils are equal, round and reactive to light. Extraocular muscles intact. Neck: Supple, Full range of motion. No lymphadenopathy. No palpable masses. Respiratory: Clear to auscultation. Cardiovascular: S1 S2 regular. No murmurs. No carotid bruits. Neurologic:?Alert and oriented x 3, no focal deficits observed Skin: No rashes Extremities: Warm and well perfused. No clubbing, cyanosis or edema. Psychiatric: Normal mood and affect [facility] Medical History (Updated 09/21/24 @ 11:52 by NACHO Mcwilliams) Cognitive decline Memory problem Abnormal EKG Sensation of pressure in bladder area Urinary incontinence Word finding difficulty Confusion History of UTI Hospital discharge follow-up Bilateral pleural effusion Lumbar degenerative disc disease Anxiety Fatigue Chronic back pain DISH (diffuse idiopathic skeletal hyperostosis) Impaired fasting glucose Right-sided low back pain without sciatica Constipation Hypertension Hyperlipidemia Family History Mother HTN (hypertension) Thyroid disorder Father HTN (hypertension) Cardiovascular disease Alcohol abuse Maternal Grandfather Cardiovascular disease Thyroid disorder Other FH: mental illness Substance use Social History (Updated 09/21/24 @ 11:12 by Juanita Luna MA) Housing: Condominium Alcohol intake: current Patient Tobacco Use Status: Never used Tobacco e-Cigarette/Vaping Use: Never Used Second Hand Smoke Exposure: No Use of substances other than those prescribed or required for medical reasons: No service: No Current occupational status: retired Current occupational exposures/hazards: No Cognitive needs: No Hearing needs: No Vision needs: Yes Questionnaire PHQ-9 Over the last 2 weeks, how often have you been bothered by any of the following problems? 1. Little interest or pleasure in doing things: not at all 2. Feeling down, depressed, or hopeless: several days 3. Trouble falling or staying asleep, or sleeping too much: not at all 4. Feeling tired or having little energy: several days 5. Poor appetite or overeating: several days 6. Feeling bad about yourself - or that you are a failure or have let yourself or your family down: not at all 7. Trouble concentrating on things, such as reading the newspaper or watching television: not at all 8. Moving or speaking so slowly that other people could have noticed. Or the opposite - being so fidgety or restless that you have been moving around a lot more than usual: not at all 9. Thoughts that you would be better off or of hurting yourself in some way: not at all Total score: 3 Depression Screening Interpretation: Negative Depression Screening Done: Yes 00639 - PHQ-9 Billing: Patient declined-do not bill Source: Developed by Drs. Deacon Arias, Shahida Leach, Bryan Cervantes and colleagues, with an educational zia from [employer]. Thrive Questionnaire Date Thrive assessed: 09/21/24 I am a: Patient What is your living situation today?: I have a steady place to live Within the past 12 months, did the food you bought not last and you didn't have the money to get more?: I choose not to answer this question Within the past 12 months, did you worry whether your food would run out before you got money to buy more?: I choose not to answer this question Do you have trouble paying for medicines?: No Do you have trouble getting transportation to medical appointments?: No Do you have trouble paying your heating and electricity bill?: No Do you have trouble taking care of your child, family member or friend?: I choose not to answer this question Do you have trouble with day-to-day activities such as bathing, preparing meals, shopping, managing finances, etc.?: No Are you currently unemployed and looking for a job?: No Are you interested in more education?: No Please select the resources that you would like help with: None Currently or been in a relationship where the following occur: I choose not to answer THRIVE Score: 0 AUDIT C Alcohol Use Questionnaire (AUDIT-C) 1. How often do you have a drink containing alcohol?: 4 or more times a week 2. How many drinks containing alcohol do you have on a typical day when you are drinking?: 1 or 2 Total Score: 4 Score Reviewed/Action Taken: No PHONG-7 AMB Questionnaire PHONG-7 Date PHONG - 7 assessed: 09/14/24 Feeling nervous, anxious, or on edge: 0 = Not at all Not being able to stop or control worryin = Several days Worrying too much about different things: 1 = Several days Trouble relaxin = Not at all Being so restless that it is hard to sit still: 0 = Not at all Becoming easily annoyed or irritable: 0 = Not at all Feeling afraid as if something awful might happen: 0 = Not at all Total PHONG-7 score (0-4 normal; 5-9 mild; 10-14 moderate; 15-21 severe): 2 Source: Developed by Drs. Deacon Arias, Shahida Leach, Bryan Cervantes and colleagues, with an educational zia from [employer]. PHONG-7 Assessment Billing PHONG-7 Assessment Tool: PHONG-7 Assessment 36691 Physical exam (Primary Care) Vital Signs: Last Vital Signs Temp 97.4 F 09/21/24 11:13 Pulse 59 09/21/24 11:13 Resp 12 09/21/24 11:13 BP 116/70 09/21/24 11:13 Pulse Ox 97 09/21/24 11:13 Oxygen Delivery Method Room Air 09/21/24 11:13 BMI result Body Mass Index 22.3 Tobacco/Smoking Status: Tobacco use Status Tobacco use date assessed 09/14/24 09/21/24 11:06 Patient Tobacco Use Status Never used Tobacco 09/21/24 11:12 e-Cigarette/Vaping Use Never Used 09/21/24 11:12 Depression Screening Interpretation: Negative Thrive Assessment: Date of Thrive Assessment Date Thrive assessed 06/11/24 09/21/24 11:06 Currently or been in a relationship where the following occur: I choose not to answer Coding Level of Care Code Est Pt Level 4 (88957) Complex EM visit Add On G2211 Diagnoses Word finding difficulty R47.89 Anxiety F41.9 Cognitive decline R41.89 Additional Codes PHONG-7 Assessment Billing - PHONG-7 Assessment Tool: PHONG-7 Assessment 12262 ([id number]) Assessment & Plan Assessment & Plan (1) Word finding difficulty: Code(s): R47.89 - Other speech disturbances Category: Medical (2) Anxiety: Code(s): F41.9 - Anxiety disorder, unspecified Category: Medical (3) Cognitive decline: Code(s): R41.89 - Other symptoms and signs involving cognitive functions and awareness Category: Medical Plan In summary this is an 89-year-old female with a past medical history of hypertension, hyperlipidemia and anxiety who presented today for re-evaluation of fatigue and some cognitive decline over the last month. Urine culture negative for infection. Advised patient she does not have to finish Macrobid. Neurologic exam intact last week. MMSE 30 which is reassuring. Reviewed MRI results which shows some frontal lobe atrophy which could be normal for aging but it can also be seen with dementia. I will refer to Neurology for further evaluation. She has some improvement since decreasing buspirone so she will discontinue this, and I will switch her to sertraline half a 25 mg tablet for a week and then increase to 25 mg daily. Side effects, black box warning and administration reviewed. She was instructed to call if she has any difficulties with the medicine. She will follow up with me in 6 weeks. Orders: Referrals Neurology Referral R41.3 - Other amnesia, R47.89 - Other speech disturbances Medications: New sertraline Take 1/2 tab po daily for 1 week then increase to 1 tab daily. 25 mg PO DAILY 90 tabs 0RF Refilled oxybutynin chloride ER 5 mg PO DAILY 90 tabs 3RF Discontinued nitrofurantoin monohyd/m-cryst 100 mg (Macrobid) must administer with a meal/food Discontinued Reason: Doctor's Order 100 mg PO BID 14 caps 0RF buspirone Discontinued Reason: Doctor's Order 5 mg PO DAILY 90 tabs 0RF Patient Instructions: Please stop taking Buspirone (Buspar) and Start Sertraline (Zoloft) 25 mg. Take 1/2 tab once daily of Sertraline for a week then increase to 1 tablet once daily.
[2024-09-21 11:13] VITALS: BP 116/70; PULSE 59; RESP 12; TEMP 36.3; O2SAT 97; BMI 22.3
== END 2024-09-21 11:54 | disposition home or self-care (01) ==
PROVIDERS: PCP Physician Assistant Medical; Visit Provider Physician Assistant Medical
DX: R47.89 Other speech disturbances (principal); F41.9 Anxiety disorder, unspecified; R41.89 Other symptoms and signs involving cognitive functions and awareness

== ENCOUNTER 2024-10-06 14:03 | Outpatient (REF) | payer MEDICARE, SELFPAY ==
[2024-10-06 17:32] LABS: Appearance Urine Clear; Color Urine Yellow; Glucose Urine UA Negative (Negative); Leukocyte Esterase Urine Trace (Negative); Nitrite Urine Negative (Negative); PH 6.5 (5.0-9.0); UMIC TRIGGER UA YES; Urine Blood Negative (Negative); Urine Ketones Negative (Negative); Urine Protein Negative (Neg-Trace)
[2024-10-06 17:35] LABS: Bacteria Urine None Seen (None Seen); Hyaline Casts Urine 0-2 /LPF (0-2); RBC Urine 0-2 /HPF (0-2); Squamous Epithelial Cell Urine 0-2 /HPF (0-2); WBC Urine 0-5 /HPF (0-5)
== END 2024-10-06 14:04 | disposition home or self-care (01) ==
LOC: HO.WFDLDS 14:03
PROVIDERS: Visit Provider Physician Assistant Medical
DX: R39.9 Unspecified symptoms and signs involving the genitourinary system (principal)
CPT/HCPCS: 81001; 87086

== ENCOUNTER 2024-10-08 11:29 | Outpatient (AMB) | payer MEDICARE, SELFPAY ==
--- NOTE | 2024-10-08 11:46 | MHC.PC.OV ---
Vital Signs 10/08/24 11:48 Height 5 ft 4 in Weight 131 lb 2 oz BMI 22.5 BP 104/64 Blood Pressure Location Rt brachial Position Sitting Pulse 58 Pulse Source Pulse Oximeter Temp 98.6 F Temp Source Temporal Artery Scan Pulse Oximetry (%) 96 Oxygen Delivery Method Room Air Intake Visit Reasons: possible UTI, lab review Intake Note: Mary Jo presents in the office today for possible UTI and to go over her lab results. Allergies morphine Allergy (Intermediate, Verified 10/08/24 11:47) Nausea Tobacco use date assessed: 10/08/24 Dental Screening Dental Screen Date: 10/08/24 Did you have a dental visit in the last 12 months?: Yes Did you have a dental problem in the last 6 months where you did not have access to dental care?: No Was dental information given to patient?: Patient has dentist HPI HPI Comments History of Present Illness Details This is an 89-year-old female with a past medical history of hypertension, hyperlipidemia, impaired fasting glucose, degenerative disc disease of the spine, dermatitis and right-sided back pain presenting for follow up. She called this week because she was concerned about a potential UTI due to ongoing urinary urgency, urinary incontinence and some pain in her lower back. Urinalysis negative aside from trace leuks. Urine culture did not show UTI. There was some mixed bacterial growth from skin contamination. Denies fevers, chills, dysuria, hematuria. Patient has longstanding history of urinary incontinence. She is on oxybutynin. She uses pads. She also has a history of degenerative disc disease in her lower back so it is difficult for her to tell sometimes if it is her musculoskeletal pain or a urinary issue which makes her anxious. Patient stopped buspirone in his on sertraline for the past few weeks. She is already feeling better. She has less brain fog. She has gained 1 lb back. She has been referred to Neurology. Neurologic exam was intact. MMSE score thirty at her recent appointment. The patient had lab work on 09/15/2024. CBC demonstrated no anemia or leukocytosis. CMP, B12, vitamin-D, TSH and urinalysis were normal. Her urine culture was negative for UTI. She had an MRI of the brain on 09/17/2024 which demonstrated age-related cerebral and cerebellar volume loss with somewhat more prominent extra-axial spaces overlying the bilateral frontal lobes. There was also evidence of macrovascular ischemia. She was previously on Lexapro for years for anxiety which helped, but it was discontinued due to hospitalization in July presumably due to QT prolongation on EKG. At the time she also had electrolyte abnormalities and influenza and was dehydrated. ROS: Constitutional: No fevers, chills or increased fatigue. Eyes: No vision changes, blurry vision, double vision, eye pain, eye redness, eye discharge. Respiratory: No shortness of breath, cough or sputum production. Cardiovascular: No chest pain, chest pressure or chest discomfort. No palpitations or pedal edema. Gastrointestinal: No anorexia, nausea, vomiting or diarrhea. No abdominal pain or blood in stool. Neurologic: No headache,syncope, seizure, tremor unilateral weakness, ataxia, numbness or tingling in the extremities. See HPI. Musculoskeletal: +chronic back pain, no new pains, joint pains or swelling Endocrine: No cold or heat intolerance. Psychiatric: See HPI. No SI or HI. Physical exam: Constitutional: Alert, in no distress. Well-appearing today. Neck: Supple, Full range of motion. No lymphadenopathy. No palpable masses. Respiratory: Clear to auscultation. Cardiovascular: S1 S2 regular. No murmurs. No carotid bruits : No CVA tenderness, Abdomen: Soft, nontender, no palpable masses Neurologic:?Alert and oriented x 3, no focal deficits observed [facility] Medical History (Updated 09/21/24 @ 11:52 by NACHO Mcwilliams) Cognitive decline Memory problem Abnormal EKG Sensation of pressure in bladder area Urinary incontinence Word finding difficulty Confusion History of UTI Hospital discharge follow-up Bilateral pleural effusion Lumbar degenerative disc disease Anxiety Fatigue Chronic back pain DISH (diffuse idiopathic skeletal hyperostosis) Impaired fasting glucose Right-sided low back pain without sciatica Constipation Hypertension Hyperlipidemia Family History Mother HTN (hypertension) Thyroid disorder Father HTN (hypertension) Cardiovascular disease Alcohol abuse Maternal Grandfather Cardiovascular disease Thyroid disorder Other FH: mental illness Substance use Social History (Updated 10/08/24 @ 11:47 by Juantia Luna MA) [facility] Alcohol intake: current Patient Tobacco Use Status: Never used Tobacco e-Cigarette/Vaping Use: Never Used Second Hand Smoke Exposure: No Use of substances other than those prescribed or required for medical reasons: No service: No Current occupational status: retired Current occupational exposures/hazards: No Cognitive needs: No Hearing needs: No Vision needs: Yes Questionnaire Thrive Questionnaire Date Thrive assessed: 10/08/24 I am a: Patient What is your living situation today?: I have a steady place to live Within the past 12 months, did the food you bought not last and you didn't have the money to get more?: I choose not to answer this question Within the past 12 months, did you worry whether your food would run out before you got money to buy more?: I choose not to answer this question Do you have trouble paying for medicines?: No Do you have trouble getting transportation to medical appointments?: No Do you have trouble paying your heating and electricity bill?: No Do you have trouble taking care of your child, family member or friend?: I choose not to answer this question Do you have trouble with day-to-day activities such as bathing, preparing meals, shopping, managing finances, etc.?: No Are you currently unemployed and looking for a job?: No Are you interested in more education?: No Please select the resources that you would like help with: None Currently or been in a relationship where the following occur: I choose not to answer THRIVE Score: 0 AUDIT C Alcohol Use Questionnaire (AUDIT-C) 1. How often do you have a drink containing alcohol?: Monthly or less 2. How many drinks containing alcohol do you have on a typical day when you are drinking?: 1 or 2 3. How often do you have six or more drinks on one occasion?: Never Total Score: 1 Score Reviewed/Action Taken: No PHONG-7 AMB Questionnaire PHONG-7 Date PHONG - 7 assessed: 10/08/24 Source: Developed by Drs. Deacon Arias, Shahida Leach, Bryan Cervantes and colleagues, with an educational zia from [employer]. Physical exam (Primary Care) Vital Signs: Last Vital Signs Temp 98.6 F 10/08/24 11:48 Pulse 58 10/08/24 11:48 BP 104/64 10/08/24 11:48 Pulse Ox 96 10/08/24 11:48 Oxygen Delivery Method Room Air 10/08/24 11:48 BMI result Body Mass Index 22.5 Tobacco/Smoking Status: Tobacco use Status Tobacco use date assessed 10/08/24 10/08/24 11:51 Patient Tobacco Use Status Never used Tobacco 10/08/24 11:51 e-Cigarette/Vaping Use Never Used 10/08/24 11:51 Thrive Assessment: Date of Thrive Assessment Date Thrive assessed 10/08/24 10/08/24 11:51 Currently or been in a relationship where the following occur: I choose not to answer Coding Level of Care Code Est Pt Level 4 (23806) Complex EM visit Add On G2211 Diagnoses Anxiety F41.9 Cognitive decline R41.89 Assessment & Plan Assessment & Plan (1) Anxiety: Code(s): F41.9 - Anxiety disorder, unspecified Category: Medical (2) Cognitive decline: Code(s): R41.89 - Other symptoms and signs involving cognitive functions and awareness Category: Medical Plan In summary this is an 89-year-old female with a past medical history of hypertension, hyperlipidemia , urinary incontinence and anxiety who presented today for re-evaluation. Continue current dose of sertraline 25 mg a day. She has an appointment in 3 weeks for re-evaluation. Urine culture negative for infection. Continue oxybutynin. Refer to urogynecology. Recommended decreasing caffeine intake because she drinks a lot of tea throughout the day. Avoid alcohol which she also notices worsened symptoms. Neurologic exam intact. MMSE 30 which is reassuring. She has been referred to Neurology. She will follow up as scheduled in 3 weeks. Orders: Referrals Urogynecology Referral R32 - Unspecified urinary incontinence
[2024-10-08 11:48] VITALS: BP 104/64; PULSE 58; TEMP 37; O2SAT 96; BMI 22.5
== END 2024-10-08 13:30 | disposition home or self-care (01) ==
LOC: HO.HMCFM 11:29
PROVIDERS: PCP Physician Assistant Medical; Visit Provider Physician Assistant Medical
DX: F41.9 Anxiety disorder, unspecified (principal); R41.89 Other symptoms and signs involving cognitive functions and awareness

== ENCOUNTER → 2024-10-08 11:29 | Outpatient (BNVA) | payer MEDICARE, SELFPAY | PROVIDERS: PCP Physician Assistant Medical; Visit Provider Physician Assistant Medical | DX: F41.9 Anxiety disorder, unspecified (principal); R41.89 Other symptoms and signs involving cognitive functions and awareness; I10 Essential (primary) hypertension; E78.5 Hyperlipidemia, unspecified; R32 Unspecified urinary incontinence; Z79.899 Other long term (current) drug therapy | CPT/HCPCS: 99212 ==

== ENCOUNTER 2024-11-12 11:36 | Outpatient (AMB) | payer MEDICARE, SELFPAY ==
--- NOTE | 2024-11-12 11:42 | A.OFFPC_ITS ---
Vital Signs 11/12/24 11:45 Height 5 ft 4 in Weight 127 lb 6 oz BMI 21.9 BP 100/58 L Blood Pressure Location Rt brachial Position Sitting Pulse 62 Pulse Source Pulse Oximeter Temp 97.9 F Temp Source Temporal Artery Scan Pulse Oximetry (%) 96 Oxygen Delivery Method Room Air Intake Visit Reasons: F/U Med review- see comments Intake Note: Mary Jo presents in the office today for a medication review. Allergies morphine Allergy (Intermediate, Verified 11/12/24 11:44) Nausea Tobacco use date assessed: 11/12/24 Dental Screening Dental Screen Date: 11/12/24 Did you have a dental visit in the last 12 months?: Yes Did you have a dental problem in the last 6 months where you did not have access to dental care?: No Was dental information given to patient?: Patient has dentist HPI HPI Comments History of Present Illness Details This is an 89-year-old female with a past medical history of hypertension, hyperlipidemia, impaired fasting glucose, degenerative disc disease of the spine, dermatitis and right-sided back pain presenting for follow up. She is doing much better. Her family situation has improved. Her daughter completed her last surgery for cancer. Her sister received the stem cell transplant. Her daughter and her son will be moving out of her small condo soon. She is happy to beginning her space back. She has been doing a lot of creative work. 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 Anxiety-she feels better on sertraline 25 mg a day. She does not feel like she needs to increase the dose.She was previously on Lexapro for years for anxiety which helped, but it was discontinued due to hospitalization in July presumably due to QT prolongation on EKG. At the time she also had electrolyte abnormalities and influenza and was dehydrated. She has less brain fog. She has been referred to Neurology. Neurologic exam was intact. MMSE score thirty at her recent appointment. The patient had lab work on 09/15/2024. CBC demonstrated no anemia or leukocytosis. CMP, B12, vitamin-D, TSH and urinalysis were normal. Her urine culture was negative for UTI. She had an MRI of the brain on 09/17/2024 which demonstrated age-related cerebral and cerebellar volume loss with somewhat more prominent extra-axial spaces overlying the bilateral frontal lobes. There was also evidence of macrovascular ischemia. She has a cardiology appointment scheduled in December for re-evaluation of the previously abnormal EKG on 09/14/2024 which showed left axis deviation, left ventricular hypertrophy and QRS widening and possible anterior septal infarct. She denies chest pain, shortness of breath, dizziness, leg swelling. She lost about 17 lb over the past year which she attributed to stress and anxiety about her living situation and the health problems of her family members in her daughter's cancer. She also lost weight when she was hospitalized earlier this year for influenza and dehydration and a UTI. Patient says her appetite is good though she has lost a couple of lb since her last visit here. Denies abdominal pain, nausea, vomiting, diarrhea or blood in stools. ROS: Constitutional: No fevers, chills or fatigue. Eyes: No vision changes, blurry vision, double vision, eye pain, eye redness, eye discharge. Respiratory: No shortness of breath, cough or sputum production. Cardiovascular: No chest pain, chest pressure or chest discomfort. No palpitations or pedal edema. Gastrointestinal: No anorexia, nausea, vomiting or diarrhea. No abdominal pain or blood in stool. Neurologic: No headache,syncope, seizure, tremor unilateral weakness, ataxia, numbness or tingling in the extremities. Musculoskeletal: +chronic back pain, no new pains, joint pains or swelling Endocrine: No cold or heat intolerance. Psychiatric: See HPI. No SI or HI. Physical exam: Constitutional: Alert, in no distress. Well-appearing . Neck: Supple, Full range of motion. No lymphadenopathy. No palpable masses. Respiratory: Clear to auscultation. Abdomen: Soft, nontender, no organomegaly or palpable masses Cardiovascular: S1 S2 regular. No murmurs. No carotid bruits Neurologic:?Alert and oriented x 3, no focal deficits observed [facility] Medical History (Updated 11/12/24 @ 13:43 by NACHO Mcwilliams) Weight loss Cognitive decline Memory problem Abnormal EKG Sensation of pressure in bladder area Urinary incontinence Word finding difficulty Confusion History of UTI Hospital discharge follow-up Bilateral pleural effusion Lumbar degenerative disc disease Anxiety Fatigue Chronic back pain DISH (diffuse idiopathic skeletal hyperostosis) Impaired fasting glucose Right-sided low back pain without sciatica Constipation Hypertension Hyperlipidemia Family History Mother HTN (hypertension) Thyroid disorder Father HTN (hypertension) Cardiovascular disease Alcohol abuse Maternal Grandfather Cardiovascular disease Thyroid disorder Other FH: mental illness Substance use Social History (Updated 11/12/24 @ 11:45 by Juanita Luna MA) Housing: Condominium Alcohol intake: current Patient Tobacco Use Status: Never used Tobacco e-Cigarette/Vaping Use: Never Used Second Hand Smoke Exposure: No service: No Current occupational status: retired Current occupational exposures/hazards: No Cognitive needs: No Hearing needs: No Vision needs: Yes Questionnaire Thrive Questionnaire Date Thrive assessed: 06/11/24 I am a: Patient What is your living situation today?: I have a steady place to live Within the past 12 months, did the food you bought not last and you didn't have the money to get more?: I choose not to answer this question Within the past 12 months, did you worry whether your food would run out before you got money to buy more?: I choose not to answer this question Do you have trouble paying for medicines?: No Do you have trouble getting transportation to medical appointments?: No Do you have trouble paying your heating and electricity bill?: No Do you have trouble taking care of your child, family member or friend?: I choose not to answer this question Do you have trouble with day-to-day activities such as bathing, preparing meals, shopping, managing finances, etc.?: No Are you currently unemployed and looking for a job?: No Are you interested in more education?: No Please select the resources that you would like help with: None Currently or been in a relationship where the following occur: I choose not to answer THRIVE Score: 0 PHONG-7 AMB Questionnaire PHONG-7 Date PHONG - 7 assessed: 10/08/24 Source: Developed by Drs. Deacon Arias, Shahida Leach, Bryan Cervantes and colleagues, with an educational zia from [employer]. Physical exam (Primary Care) Vital Signs: Last Vital Signs Temp 97.9 F 11/12/24 11:45 Pulse 62 11/12/24 11:45 BP 100/58 L 11/12/24 11:45 Pulse Ox 96 11/12/24 11:45 Oxygen Delivery Method Room Air 11/12/24 11:45 BMI result Body Mass Index 21.9 Tobacco/Smoking Status: Tobacco use Status Tobacco use date assessed 11/12/24 11/12/24 11:47 Patient Tobacco Use Status Never used Tobacco 11/12/24 11:47 e-Cigarette/Vaping Use Never Used 11/12/24 11:47 Thrive Assessment: Date of Thrive Assessment Date Thrive assessed 06/11/24 11/12/24 11:47 Currently or been in a relationship where the following occur: I choose not to answer Coding Level of Care Code Est Pt Level 4 (88983) Complex EM visit Add On G2211 Diagnoses Anxiety F41.9 Cognitive decline R41.89 Weight loss R63.4 Primary hypertension I10 Hypertension type: primary hypertension Assessment & Plan Assessment & Plan (1) Anxiety: Code(s): F41.9 - Anxiety disorder, unspecified Category: Medical (2) Cognitive decline: Code(s): R41.89 - Other symptoms and signs involving cognitive functions and awareness Category: Medical (3) Weight loss: Code(s): R63.4 - Abnormal weight loss Category: Medical (4) Hypertension: Code(s): I10 - Essential (primary) hypertension Category: Medical Qualifiers: Hypertension type: primary hypertension Qualified Code(s): I10 - Essential (primary) hypertension Plan In summary this is an 89-year-old female with a past medical history of hypertension, hyperlipidemia , urinary incontinence and anxiety who presented today for re-evaluation. Continue current dose of sertraline 25 mg a day. We will reassess weight in another month since anxiety is subsiding, and her living situation is improving. Previous Neurologic exam intact. MMSE 30 which is reassuring. She has been referred to Neurology. Patient has better cognition now that anxiety is stable, and she feels better physically. She will follow up with Cardiology as planned in December. Warning signs warranting ER evaluation reviewed. Her blood pressure is soft today. We have tapered down atenolol, and she will discontinue the 25 mg tablets starting today. Continue amlodipine 5 mg daily. Follow up in 4 weeks. Re-evaluate weight and blood pressure. Medications: Discontinued atenolol Replaces Atenolol 50 mg daily. Discontinued Reason: Doctor's Order 25 mg PO DAILY 90 tabs 0RF
[2024-11-12 11:45] VITALS: BP 100/58; PULSE 62; TEMP 36.6; O2SAT 96; BMI 21.9
== END 2024-11-12 12:12 | disposition home or self-care (01) ==
LOC: HO.HMCFM 11:36
PROVIDERS: PCP Physician Assistant Medical; Visit Provider Physician Assistant Medical
DX: F41.9 Anxiety disorder, unspecified (principal); R41.89 Other symptoms and signs involving cognitive functions and awareness; R63.4 Abnormal weight loss; I10 Essential (primary) hypertension

== ENCOUNTER → 2024-11-12 11:36 | Outpatient (BNVA) | payer MEDICARE, SELFPAY | PROVIDERS: PCP Physician Assistant Medical; Visit Provider Physician Assistant Medical | DX: I10 Essential (primary) hypertension (principal); E78.5 Hyperlipidemia, unspecified; F41.9 Anxiety disorder, unspecified; R41.89 Other symptoms and signs involving cognitive functions and awareness; R63.4 Abnormal weight loss | CPT/HCPCS: 99212 ==

== ENCOUNTER 2024-12-02 10:58 | Outpatient (AMB) | payer MEDICARE, SELFPAY ==
--- NOTE | 2024-12-02 10:58 | MHC.OFFWIV ---
Intake Vital Signs 12/02/24 11:04 Height 5 ft 4 in Weight 127 lb 4 oz BMI 21.8 BP 108/67 Blood Pressure Location Lt brachial Position Sitting Respiration 12 Pulse 93 Pulse Source Pulse Oximeter Temp 97.3 F Temp Source Oral Pulse Oximetry (%) 96 Oxygen Delivery Method Room Air Intake Visit Reasons: swollen throat/hard time speaking Intake Note: Patient c/o sore throat, swollen, coughing, and no voice x 3days. Patient went to urgent care yesterday and was tested negative for covid and strep. 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: No Allergies morphine Allergy (Intermediate, Verified 12/02/24 11:18) Nausea Medication List - Last Reconciled 12/02/24 by Charlotte Vu, [facility]- amlodipine 5 mg PO DAILY cyanocobalamin (vitamin B-12) 1,000 mcg PO DAILY oxybutynin chloride ER 5 mg PO DAILY sertraline 25 mg PO DAILY Do you need a note to return to daycare/school/sports/work: No HPI HPI Comments History of Present Illness Details This is an 89-year-old female with a past medical history of hypertension, hyperlipidemia, impaired fasting glucose, degenerative disc disease of the spine, dermatitis and right-sided back pain presenting for c/o sore throat, phelgm and haorse voice. Sx started 2 days ago. Went to [facility] [place], negative strep. Advised to start claritin, salt water gargles. Here today as she has taken 2 doses of claritin and cont to feel this sense of fullness in her neck w/ thick phlegm, feels like she is choking. Not taking any NSAIDS or the like. ROS: Constitutional: No fevers, chills or fatigue. Eyes: No vision changes, blurry vision, double vision, eye pain, eye redness, eye discharge. Respiratory: No shortness of breath, cough Cardiovascular: No chest pain, chest pressure or chest discomfort. No palpitations or pedal edema. Gastrointestinal: No anorexia, nausea, vomiting or diarrhea. No abdominal pain or blood in stool. Neurologic: No headache,syncope, seizure, tremor unilateral weakness, ataxia, numbness or tingling in the extremities. Endocrine: No cold or heat intolerance. Exam Awake alert NAD Sclera and conjunctiva clear bilat Nares patent, turbinates within normal limits, no sinus tenderness with palpation bilat Cerumen impaction bilat MMM, pharynx WNL, voice hoarse, very tender over neck, + ac adenopathy bilat, managing secretions Plan: Liquid Ibu 600-800 mg TID for pain, buy OTC Abt Debrox when feeling better and visit to flush bilat ears Supportive care also encouraged. edu on when to seek additional care. Total time spent caring for the patient today was 30 minutes. This includes time spent before the visit reviewing the chart, time spent during the visit, and time spent after the visit on documentation, reviewing laboratory results, diagnostic imaging, medications, performing a medically necessary evaluation, counseling on diagnoses, care coordination, ordering appropriate tests, ordering appropriate medications, review of tests performed by other providers, reporting test results with the patient, communication with other healthcare providers. [facility] Medical History (Updated 12/02/24 @ 11:24 by Charlotte Vu, [facility]) Abnormal EKG Anxiety Bilateral pleural effusion Chronic back pain Cognitive decline Confusion Constipation DISH (diffuse idiopathic skeletal hyperostosis) Fatigue History of UTI Hospital discharge follow-up Hyperlipidemia Hypertension Impaired fasting glucose Lumbar degenerative disc disease Memory problem Right-sided low back pain without sciatica Sensation of pressure in bladder area Urinary incontinence Weight loss Word finding difficulty Family History Mother HTN (hypertension) Thyroid disorder Father HTN (hypertension) Cardiovascular disease Alcohol abuse Maternal Grandfather Cardiovascular disease Thyroid disorder Other FH: mental illness Substance use Social History (Updated 11/12/24 @ 11:45 by Juanita Luna MA) Housing: Condominium Alcohol intake: current Patient Tobacco Use Status: Never used Tobacco e-Cigarette/Vaping Use: Never Used Second Hand Smoke Exposure: No service: No Current occupational status: retired Current occupational exposures/hazards: No Cognitive needs: No Hearing needs: No Vision needs: Yes Physical Exam Vital Signs: Last Vital Signs Temp 97.3 F 12/02/24 11:04 Pulse 93 12/02/24 11:04 Resp 12 12/02/24 11:04 BP 108/67 12/02/24 11:04 Pulse Ox 96 12/02/24 11:04 Oxygen Delivery Method Simple Mask 12/02/24 11:04 BMI result Body Mass Index 21.8 Assessment & Plan Assessment & Plan (1) Pharyngitis: Code(s): J02.9 - Acute pharyngitis, unspecified Qualifiers: Pharyngitis/tonsillitis etiology: unspecified etiology Qualified Code(s): J02.9 - Acute pharyngitis, unspecified (2) Impacted cerumen, bilateral: Code(s): H61.23 - Impacted cerumen, bilateral Plan . Medications: New amoxicillin-pot clavulanate 500-125 mg 1 tab PO BID 7 days 14 tabs 0RF carbamide peroxide 6.5% (Debrox) 5 drps otic (ears) DAILY 15 mL 0RF BILAT EARS 5 days amoxicillin-pot clavulanate 500-125 mg 1 tab PO BID 14 tabs 0RF 7 days Coding Level of Care Code Est Pt Level 4 (78217) Diagnoses Pharyngitis, unspecified etiology J02.9 Pharyngitis/tonsillitis etiology: unspecified etiology Impacted cerumen, bilateral H61.23
[2024-12-02 11:04] VITALS: BP 108/67; PULSE 93; RESP 12; TEMP 36.3; O2SAT 96; BMI 21.8
== END 2024-12-02 11:18 | disposition home or self-care (01) ==
LOC: HO.HMCFM 10:58
PROVIDERS: PCP Physician Assistant Medical; Visit Provider Nurse Practitioner Family
DX: J02.9 Acute pharyngitis, unspecified (principal); H61.23 Impacted cerumen, bilateral

== ENCOUNTER → 2024-12-02 10:58 | Outpatient (BNVA) | payer MEDICARE, SELFPAY | PROVIDERS: PCP Physician Assistant Medical; Visit Provider Nurse Practitioner Family | DX: J02.9 Acute pharyngitis, unspecified (principal); I10 Essential (primary) hypertension; E78.5 Hyperlipidemia, unspecified; H61.23 Impacted cerumen, bilateral | CPT/HCPCS: 99212 ==

== ENCOUNTER 2025-01-06 14:20 | Outpatient (REF) | payer MEDICARE, SELFPAY ==
--- OUTSIDE RECORDS SUMMARY | 2025-01-06 15:04 | XMS_ITS | Clinical Summary ---
Author Organization [facility] Address [address] [place] [address] Phone Care Team Providers Care Service Delivery Supervisor Name Role Phone [place] Portillo Primary Care Provide r Allergies Active Allergy Reactions Criticality Noted Date Comments Morphine 12/01/2024 Medications atenolol (TENORMIN) 50 mg tablet 10/13/2024 Active busPIRone (BUSPAR) 5 MG tablet 09/09/2024 Active gabapentin (NEURONTIN) 100 MG capsule 11/25/2024 Active ketoconazole 2 % cream 11/25/2024 Active mometasone (ELOCON) 0.1 % cream 11/26/2024 Active oxyBUTYnin (DITROPAN-XL) 5 MG 24 hr tablet 11/23/2024 Active sertraline (ZOLOFT) 25 MG tablet 09/21/2024 Active Active Problems Problem Noted Date Diagnosed Date Non-smoker 08/03/2013 Overview (07/31/2014): Non-smoker Sciatica 08/18/2012 Overview (07/31/2014): Sciatica Sleep apnea 08/18/2012 Overview (07/31/2014): Sleep apnea Rosacea 08/18/2012 Overview (07/31/2014): Rosacea Hypertensive disorder 08/18/2012 Overview (07/31/2014): HTN - Hypertension Basal cell carcinoma of skin 08/18/2012 Overview (07/31/2014): Basal cell carcinoma of skin; back 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 Overview (07/31/2014): Dry mouth Encounters Date Type Department Care Team Description 12/01/2024 9:20 AM EDT [facility] Visit [facility] [address] [address] Judy Strong CNP Gould, Danielle Marie, CNP Acute pharyngitis, unspecified etiology (Primary Dx); Laryngitis, acute from Last 3 Months Family History Medical History Relation Comments Hypertension Brother hypertension Heart attack Father myocardial infar ction Hypertension Sister hypertension Relation Status Comments Brother Father Sister Social History Tobacco Use Types Packs/Day Years Used Date Smoking Tobacco: Never Education Answer Date Recorded Are you interested in more education? Not on nancy e 12/01/2024 Are you concerned about learning? Not on file 12/01/2024 No 12/01/2024 No 12/01/2024 Digital Access Answer Date Recorded No 12/01/2024 No 12/01/2024 Reliable internet access at home? Not on file 12/01/2024 Device with a working camera? Not on file Comments Unknown Sex and Gender Information Value Date Recorded Sex Assigned at Not on file Legal Sex Female 5:12 AM EST Gender Identity Not on file Sexual Orientation Not on file Last Filed Vital Signs Vital Sign Reading Time Taken Comments Blood Pressure 121/77 12/01/2024 9:18 AM EDT Pulse 68 12/01/2024 9:18 AM EDT Temperature 36.8 C (98.2 F) 12/01/2024 9:18 AM EDT Respiratory Rate 18 12/01/2024 9:18 AM EDT Oxygen Saturation 100% 12/01/2024 9:18 AM EDT Inhaled Oxygen Concentration - - Weight - - Height - - Body Mass Index - - Plan of Treatment Health Maintenance Due Date Last Done Comments Adult Td,Tdap Booster 1937 DEPRESSION SCREENING 1949 PNEUMOCOCCAL VACCINES (50+ years) (1 of 1 - PCV) 1987 OSTEOPOROSIS SCREENING INITIAL (ONE-TIME) 2002 RSV VACCINE Completed 03/01/2023 ZOSTER VACCINES Completed 12/09/2023, 10/14/2021 COVID-19 VACCINE Completed 10/04/2024, , 03/01/2023, Additional history exists HEPATITIS A VACCINES Aged Out No long er eligible based on patient's age to complete this topic HIB VACCINES Aged Out No longer eligi ble based on patient's age to complete this topic MENINGOCOCCAL VACCINES (ACWY) Aged Out No longer eligible based on patient's age to complete this topic MENINGOCOCCAL VACCINES (B) Aged Out N o longer eligible based on patient's age to complete this topic Medical Devices Not on file Procedures Procedure Name Priority Date/Time Associated Diagnosis Comments POCT RAPID STREP A Routine 12/01/2024 9: 17 AM EDT from Last 3 Months Results * POCT Rapid Strep A (12/01/2024 9:17 AM EDT) [facility] Strep A, PCR Not Detected Not Detected C [facility] [place] [facility] 12/01/2024 9:17 AM EDT 12/01/2024 9:45 AM EDT Judy Strong EDITOR TRADE JOURNAL POINT OF CARE TEST ORDERABL ES Final Result [facility] [address] [address], [facility] [phone] from Last 3 Months Insurance [employer] HMO REPLACEMENT MEDICARE HMO REPLACEMENT [facility] MEDICARE HMO REPLACEMENT [address] [place] [id number] [place] [address] MEDICARE HMO REPLACEMENT [employer] H[employer] REPLACEMENT [employer] REPLACEMENT Care Teams Service Delivery Supervisor Relationship Specialty Start Date End Date Florida Portillo PA [address] [place] [id number] PCP - General Physician Work Car Operator 12/01/24 Additional Source Comments The information contained in this document represents components of the legal health record. It is not the complete legal health record.[facility]
[2025-01-06 17:57] LABS: Appearance Urine Turbid; Glucose Urine UA Negative (Negative); PH 6.5 (5.0-9.0); Specific Gravity - Urine 1.015 (1.005-1.025); UMIC TRIGGER UACC YES
[2025-01-06 18:14] LABS: UACC Culture Trigger YES
== END 2025-01-06 14:21 | disposition home or self-care (01) ==
LOC: HO.WFDLDS 14:20
PROVIDERS: Physician Assistant; Visit Provider Physician Assistant Medical
DX: Z13.220 Encounter for screening for lipoid disorders (principal); Z87.440 Personal history of urinary (tract) infections
CPT/HCPCS: 81001; 87086

== ENCOUNTER 2025-01-18 11:29 | Outpatient (REF) | payer MEDICARE, SELFPAY ==
--- OUTSIDE RECORDS SUMMARY | 2025-01-18 12:06 | XMS_ITS | Clinical Summary ---
Author Organization [facility] Address [address] [place] [address] Phone Care Team Providers Care Range Mounter Name Role Phone [place] Portillo Primary Care [...] Office Visit [facility] [address] [address] Judy Strong CNP Gould, Danielle Marie, CNP [...] Rapid Strep A (12/01/2024 9:17 AM EDT) [facility] Strep A, PCR Not Detected Not Detected C [facility] [place] 12/01/2024 9:17 AM EDT 12/01/2024 9:45 AM EDT Judy Strong JIG AND FIXTURE BUILDER POINT OF CARE TEST ORDERABL ES Final Result [facility] [address] [address], [facility] [phone] from Last 3 Months Insurance [employer] H[employer] REPLACEMENT MEDICARE HMO REPLACEMENT [facility] MEDICARE HMO REPLACEMENT [address] [place] [id number] [place] [address] MEDICARE HMO REPLACEMENT [employer] MED[employer] HMO REPLACEMENT [employer] H[employer] REPLACEMENT Care Teams Range Mounter Relationship Specialty Start Date End Date Florida Portillo PA [address] [place] [id number] PCP - General Physician Time Clock Inspector 12/01/24 Additional Source Comments The information contained in this document represents components of the legal health record. It is not the complete legal health record.[facility]
[2025-01-18 14:30] LABS: Appearance Urine Cloudy; Glucose Urine UA Negative (Negative); PH 5.5 (5.0-9.0); Specific Gravity - Urine 1.020 (1.005-1.025); UMIC TRIGGER UA YES
== END 2025-01-18 11:30 | disposition home or self-care (01) ==
LOC: HO.WFDLDS 11:29
PROVIDERS: Visit Provider Physician Assistant Medical
DX: R39.9 Unspecified symptoms and signs involving the genitourinary system (principal)
CPT/HCPCS: 81001; 87086

== ENCOUNTER 2025-02-04 08:56 | Outpatient (AMB) | payer MEDICARE, SELFPAY ==
--- NOTE | 2025-02-04 09:01 | MHC.PC.OV ---
Vital Signs 02/04/25 09:05 Height 5 ft 4 in Weight 127 lb 8 oz BMI 21.9 BP 122/72 Blood Pressure Location Lt brachial Position Sitting Respiration 12 Pulse 67 Pulse Source Pulse Oximeter Temp 97.9 F Temp Source Temporal Artery Scan Pulse Oximetry (%) 98 Oxygen Delivery Method Room Air Intake Visit Reasons: high level of stress. Intake Note: Mary Jo presents in the office today for stress. Allergies morphine Allergy (Intermediate, Verified 02/04/25 09:04) Nausea Medication List - Last Reconciled 02/04/25 by NACHO Mcwilliams amlodipine 5 mg PO DAILY carbamide peroxide 6.5% (Debrox) 5 drps otic (ears) DAILY 5 days cyanocobalamin (vitamin B-12) 1,000 mcg PO DAILY oxybutynin chloride ER 5 mg PO DAILY sertraline 25 mg PO DAILY Tobacco use date assessed: 02/04/25 Dental Screening Dental Screen Date: 02/04/25 Did you have a dental visit in the last 12 months?: Yes Did you have a dental problem in the last 6 months where you did not have access to dental care?: No Was dental information given to patient?: Patient has dentist HPI HPI Comments History of Present Illness Details This is an 89-year-old female with a past medical history of hypertension, hyperlipidemia, impaired fasting glucose, degenerative disc disease of the spine, dermatitis and right-sided back pain presenting for follow up. She is doing much better. Her family situation has improved. Her daughter completed chemo. She has one more surgery. Her sister received the stem cell transplant. Her daughter and grandson are moving into an apartment in [place] with her granddaughter and her granddaughter's son. It was stressful to have everybody in her condo. 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 Anxiety-she feels better on sertraline 25 mg a day. She does not feel like she needs to increase the dose.She was previously on Lexapro for years for anxiety which helped, but it was discontinued due to hospitalization in July presumably due to QT prolongation on EKG. At the time she also had electrolyte abnormalities and influenza and was dehydrated. She lost weight following hospitalization, and her weight has stabilized for the past few months. She is making short eat 3 meals per day. She was hospitalized at [facility] at the beginning of this month for right flank pain. She was anxious that it could be a another infection. She had a CT which showed nothing pathologic other than constipation. Labs including pancreatic enzymes, LFTs, RF Ts and CBC were unremarkable. She has less brain fog. She has been referred to Neurology. Neurologic exam was intact. MMSE score thirty at her previous appointment. The patient had lab work on 09/15/2024. CBC demonstrated no anemia or leukocytosis. CMP, B12, vitamin-D, TSH and urinalysis were normal. Her urine culture was negative for UTI. She had an MRI of the brain on 09/17/2024 which demonstrated age-related cerebral and cerebellar volume loss with somewhat more prominent extra-axial spaces overlying the bilateral frontal lobes. There was also evidence of macrovascular ischemia. She has a cardiology appointment scheduled on 04/13/2025 for re-evaluation of the previously abnormal EKG on 09/14/2024 which showed left axis deviation, left ventricular hypertrophy and QRS widening and possible anterior septal infarct. She denies chest pain, shortness of breath, dizziness, leg swelling. Hypertension is treated with amlodipine 5 mg daily[address] She saw Dr. Jacobo, urogynecology. She is taking Oxybutynin. ROS: Constitutional: No fevers, chills or fatigue. Eyes: No vision changes, blurry vision, double vision, eye pain, eye redness, eye discharge. Respiratory: No shortness of breath, cough or sputum production. Cardiovascular: No chest pain, chest pressure or chest discomfort. No palpitations or pedal edema. Gastrointestinal: No anorexia, nausea, vomiting or diarrhea. No abdominal pain or blood in stool. Neurologic: No headache,syncope, seizure, tremor unilateral weakness, ataxia, numbness or tingling in the extremities. Musculoskeletal: +chronic back pain,, no new pains, joint pains or swelling Endocrine: No cold or heat intolerance. Psychiatric: See HPI. No SI or HI. Physical exam: Constitutional: Alert, in no distress. Well-appearing . Neck: Supple, Full range of motion. No lymphadenopathy. No palpable masses. Respiratory: Clear to auscultation. Abdomen: Soft, nontender, no organomegaly or palpable masses Cardiovascular: S1 S2 regular. No murmurs. No carotid bruits Neurologic:?Alert and oriented x 3, no focal deficits observed [facility] Medical History (Updated 12/02/24 @ 11:24 by Charlotte Vu, [facility]) Weight loss Cognitive decline Memory problem Abnormal EKG Sensation of pressure in bladder area Urinary incontinence Word finding difficulty Confusion History of UTI Hospital discharge follow-up Bilateral pleural effusion Lumbar degenerative disc disease Anxiety Fatigue Chronic back pain DISH (diffuse idiopathic skeletal hyperostosis) Impaired fasting glucose Right-sided low back pain without sciatica Constipation Hypertension Hyperlipidemia Family History Mother HTN (hypertension) Thyroid disorder Father HTN (hypertension) Cardiovascular disease Alcohol abuse Maternal Grandfather Cardiovascular disease Thyroid disorder Other FH: mental illness Substance use Social History (Updated 02/04/25 @ 09:05 by Juanita Luna MA) Housing: Condominium Alcohol intake: current Patient Tobacco Use Status: Never used Tobacco e-Cigarette/Vaping Use: Never Used Second Hand Smoke Exposure: No service: No Current occupational status: retired Current occupational exposures/hazards: No Cognitive needs: No Hearing needs: No Vision needs: Yes Questionnaire Thrive Questionnaire Date Thrive assessed: 06/11/24 I am a: Patient What is your living situation today?: I have a steady place to live Within the past 12 months, did the food you bought not last and you didn't have the money to get more?: I choose not to answer this question Within the past 12 months, did you worry whether your food would run out before you got money to buy more?: I choose not to answer this question Do you have trouble paying for medicines?: No Do you have trouble getting transportation to medical appointments?: No Do you have trouble paying your heating and electricity bill?: No Do you have trouble taking care of your child, family member or friend?: I choose not to answer this question Do you have trouble with day-to-day activities such as bathing, preparing meals, shopping, managing finances, etc.?: No Are you currently unemployed and looking for a job?: No Are you interested in more education?: No Please select the resources that you would like help with: None Currently or been in a relationship where the following occur: I choose not to answer THRIVE Score: 0 PHONG-7 AMB Questionnaire PHONG-7 Date PHONG - 7 assessed: 05/01/25 Source: Developed by Drs. Deacon Arias, Shahida Leach, Bryan Cervantes and colleagues, with an educational zia from [employer]. Physical exam (Primary Care) Vital Signs: Last Vital Signs Temp 97.9 F 02/04/25 09:05 Pulse 67 02/04/25 09:05 Resp 12 02/04/25 09:05 BP 122/72 02/04/25 09:05 Pulse Ox 98 02/04/25 09:05 Oxygen Delivery Method Room Air 02/04/25 09:05 BMI result Body Mass Index 21.9 Tobacco/Smoking Status: Tobacco use Status Tobacco use date assessed 02/04/25 02/04/25 09:08 Patient Tobacco Use Status Never used Tobacco 02/04/25 09:05 e-Cigarette/Vaping Use Never Used 02/04/25 09:05 Thrive Assessment: Date of Thrive Assessment Date Thrive assessed 06/11/24 02/04/25 09:01 Currently or been in a relationship where the following occur: I choose not to answer Coding Level of Care Code Est Pt Level 4 (72643) Complex EM visit Add On G2211 Diagnoses Anxiety F41.9 Cognitive decline R41.89 Primary hypertension I10 Hypertension type: primary hypertension Assessment & Plan Assessment & Plan (1) Anxiety: Code(s): F41.9 - Anxiety disorder, unspecified Category: Medical (2) Cognitive decline: Code(s): R41.89 - Other symptoms and signs involving cognitive functions and awareness Category: Medical (3) Hypertension: Code(s): I10 - Essential (primary) hypertension Category: Medical Qualifiers: Hypertension type: primary hypertension Qualified Code(s): I10 - Essential (primary) hypertension Plan In summary this is an 89-year-old female with a past medical history of hypertension, hyperlipidemia , urinary incontinence and anxiety who presented today for follow up. Continue current dose of sertraline 25 mg a day. She is doing much better. Previous Neurologic exam intact. MMSE 30 which is reassuring. She has been referred to Neurology. Patient has better cognition now that anxiety is stable, and she feels better physically. She will follow up with Cardiology as planned in April. Warning signs warranting ER evaluation reviewed. Continue amlodipine 5 mg daily. Follow up in 3 months for a medication review. Medications: Refilled sertraline 25 mg PO DAILY 90 tabs 3RF oxybutynin chloride ER 5 mg PO DAILY 90 tabs 3RF cyanocobalamin (vitamin B-12) 1,000 mcg PO DAILY 90 tabs 3RF amlodipine 5 mg PO DAILY 90 tabs 3RF
[2025-02-04 09:05] VITALS: BP 122/72; PULSE 67; RESP 12; TEMP 36.6; O2SAT 98; BMI 21.9
--- OUTSIDE RECORDS SUMMARY | 2025-02-04 09:47 | XMS_ITS | Clinical Summary ---
Author Organization [facility] Address [address] [place] [address] Phone Care Team Providers Care Assistant Professor Of Dietetics Name Role Phone [place] Portillo Primary Care [...] Office Visit [facility] [address] [address] Judy Strong CNP Gould, Danielle Marie, CNP [...] Rapid Strep A (12/01/2024 9:17 AM EDT) [facility] Strep A, PCR Not Detected Not Detected C [facility] 12/01/2024 9:17 AM EDT 12/01/2024 9:45 AM EDT Judy Strong LOGISTICS ASSISTANT POINT OF CARE TEST ORDERABL ES Final Result [facility] [address] [address], [facility] [phone] from Last 3 Months Insurance [employer] HMO REPLACEMENT MEDICARE HMO REPLACEMENT [facility] MEDICARE HMO REPLACEMENT [address] [place] [id number] [place] [address] MEDICARE HMO REPLACEMENT [employer] H[employer]PLACEMENT [employer] H[employer] REPLACEMENT Care Teams Assistant Professor Of Dietetics Relationship Specialty Start Date End Date [place] Portillo PA [address] [place] [id number] PCP - General Physician Hospital Security Officer 12/01/24 Additional Source Comments The information contained in this document represents components of the legal health record. It is not the complete legal health record.[facility]
== END 2025-02-04 09:40 | disposition home or self-care (01) ==
LOC: HO.HMCFM 08:57
PROVIDERS: PCP Physician Assistant Medical; Visit Provider Physician Assistant Medical
DX: F41.9 Anxiety disorder, unspecified (principal); R41.89 Other symptoms and signs involving cognitive functions and awareness; I10 Essential (primary) hypertension

== ENCOUNTER → 2025-02-04 08:56 | Outpatient (BNVA) | payer MEDICARE, SELFPAY | PROVIDERS: PCP Physician Assistant Medical; Visit Provider Physician Assistant Medical | DX: I10 Essential (primary) hypertension (principal); F41.9 Anxiety disorder, unspecified; R41.89 Other symptoms and signs involving cognitive functions and awareness; Z79.899 Other long term (current) drug therapy | CPT/HCPCS: 99212 ==

== ENCOUNTER 2025-02-25 10:38 | Outpatient (AMB) | payer MEDICARE, SELFPAY ==
[2025-02-25 10:40] VITALS: BP 120/74; PULSE 62; O2SAT 99; BMI 22.2
--- NOTE | 2025-02-25 10:40 | MHC.OFFVIS ---
Vital Signs 02/25/25 10:40 Height 5 ft 4 in Weight 129 lb 8 oz BMI 22.2 BP 120/74 Blood Pressure Location Rt brachial Position Sitting Pulse 62 Pulse Source Pulse Oximeter Pulse Oximetry (%) 99 Oxygen Delivery Method Room Air Intake Visit Reasons: DIRECTOR NURSES' REGISTRY speech disturbances/ amnesia Intake Note: Amnesia and speech disturbances Clear Coat Sprayer Required: No Accompanied by: Self / Same As Patient Allergies morphine Allergy (Intermediate, Verified 02/25/25 10:40) Nausea Medication List - Last Reconciled 02/25/25 by Nancy Benitez MD amlodipine 5 mg PO DAILY amoxicillin-pot clavulanate 500-125 mg 1 tab PO BID atenolol 50 mg PO DAILY buspirone mg PO carbamide peroxide 6.5% (Debrox) 5 drps otic (ears) DAILY 5 days cyanocobalamin (vitamin B-12) 1,000 mcg PO DAILY lisinopril 40 mg PO DAILY mirabegron ER 50 mg PO DAILY oxybutynin chloride ER 5 mg PO DAILY sertraline 25 mg PO DAILY HPI Comments Details: 89y/o Right handed female comes for evaluation of memory issues and word finding difficulties. she started noticing some changes about 1 year ago - trouble with finding words, peoples names, occasionally misplacing things around the house etc. she lives alone - independent in all ADLS.she has 1 daughter lives near [facility] , 1 daughter in [place] . 1 son near [place]. she had multiple back surgeries and feels she needs help physically she is depressed and anxious because of her childrens physical problems.she is estranged from her oldest daughter living in [place]. she sleeps good. No known head injury recently Mother- dementia in her 80s No h/o alcohol overuse. she has 1 glass of wine a day. 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 [facility] Medical History Weight loss Cognitive decline Memory problem Abnormal EKG Sensation of pressure in bladder area Urinary incontinence Word finding difficulty Confusion History of UTI Hospital discharge follow-up Bilateral pleural effusion Lumbar degenerative disc disease Anxiety Fatigue Chronic back pain DISH (diffuse idiopathic skeletal hyperostosis) Impaired fasting glucose Right-sided low back pain without sciatica Constipation Hypertension Hyperlipidemia Family History Mother HTN (hypertension) Thyroid disorder Father HTN (hypertension) Cardiovascular disease Alcohol abuse Maternal Grandfather Cardiovascular disease Thyroid disorder Other FH: mental illness Substance use Social History Housing: Condominium Alcohol intake: current Patient Tobacco Use Status: Never used Tobacco e-Cigarette/Vaping Use: Never Used Second Hand Smoke Exposure: No service: No Current occupational status: retired Current occupational exposures/hazards: No Cognitive needs: No Hearing needs: No Vision needs: Yes Physical Exam Vital Signs: Last Vital Signs Pulse 62 02/25/25 10:40 BP 120/74 02/25/25 10:40 Pulse Ox 99 02/25/25 10:40 Oxygen Delivery Method Room Air 02/25/25 10:40 BMI result Body Mass Index 22.2 Const General: cooperative, healthy appearing, comfortable and anxious Nutritional Appearance: average body habitus Orientation/consciousness: patient oriented x3 Eyes Pupils: Equal, round and reactive pupils present Neuro Other: gait- slow General: patient oriented x3, tone normal, moves all extremities and no focal motor deficits Cranial nerves: Yes Facial sensation intact/muscles of mastication intact, Yes Equal, round and reactive pupils present, Yes Bilaterally intact EOM present, Yes Nystagmus not present, Yes Normal facial strength present, Yes Midline tongue present, Yes Symmetric palate elevation present and Yes Ability to bilaterally elevate shoulders present Cognition (Neuro): normal cognition Gait exam (Neuro): Antalgic gait present Motor exam (neuro): 5/5 motor strength present throughout and Normal motor muscle tone present throughout Deep tendon reflexes (DTR's): Right triceps reflex intensity grade: 1+, Left triceps reflex intensity grade: 1+, Rt Biceps (C5, C6): 1+, Left biceps reflex intensity grade: 1+, Right brachioradialis reflex intensity grade: 1+, Left brachioradialis reflex intensity grade: 1+, Right patellar reflex intensity grade: 2+ and Left patellar reflex intensity grade: 2+ Coordination: ptycms-cy-hglr test normal Orientation What is the (year) (season) (date) (day) (month)?: year, season, date, day and month Where are we (state) (county) (town or city) (hospital) (floor)?: state, county, town or city, hospital/clinic and floor Registration Name of 3 unrelated objects clearly and slowly, then ask patient to repeat all 3 of them. (1st repeat determines score. Make sure they can repeat all three): object 1, object 2 and object 3 Attention & Calculation (CHOOSE ONE) Spell WORLD backwards (DLROW): 5 letters Recall Ask patient to repeat the 3 items from question #3.: object 1, object 2 and object 3 Language Ask the patient to 'take a piece of paper with their right hand' 'fold paper in half' 'place paper on floor': take paper in right hand, fold paper in half and place paper on floor Score Score: 24 Results Reviewed Results Reviewed: MRI Brain 09/2024-No evidence of intracranial hemorrhage, acute infarction, mass effect, or edema. 2. Moderate changes of small vessel ischemia. 3. There is bifrontal atrophy. Assessment & Plan Assessment & Plan (1) Cognitive decline: Comment: likely related to mood and aging . she did well on MMSE today scoring 30/30 Code(s): R41.89 - Other symptoms and signs involving cognitive functions and awareness Category: Medical Plan Reviewed MRI brain- non focal Labs normal TSH VIt B 12 Increase sertraline 50mg for mood Continue social engaging activities. Medications: Changed From sertraline 25 mg PO DAILY 90 tabs 3RF To sertraline 50 mg PO DAILY 30 tabs 3RF Coding Level of Care Code New Pt Level 4 (03552) Complex EM visit Add On G2211 Diagnoses Cognitive decline R41.89
--- OUTSIDE RECORDS SUMMARY | 2025-02-25 12:48 | XMS_ITS | Clinical Summary ---
Author Organization [facility] Address [address] [place] [address] Phone Care Team Providers Care Black Leather Buffer Name Role Phone [place] Portillo Primary Care [...] Office Visit [facility] [address] [address] Judy Strong CNP Gould, Danielle Marie, CNP [...] PCV) 1987 OSTEOPOROSIS SCREENING INITIAL (ONE-TIME) 2002 INFLUENZA VACCINE (#1) 2025 , 03/01/2023, 02/26/2022, Additional history exists RSV VACCINE Completed 03/01/2023 ZOSTER VACCINES Completed [...] Rapid Strep A (12/01/2024 9:17 AM EDT) [facility] Strep A, PCR Not Detected Not Detected C [facility] [place] 12/01/2024 9:17 AM EDT 12/01/2024 9:45 AM EDT us Judy Strong HYDROPONICS WORKER POINT OF CARE TEST ORDERABL ES Final Result [facility] AT [address] [address], [facility] [phone] from Last 3 Months Insurance [employer] MEDIC[employer] HMO [place] [address] MEDICARE HMO REPLACEMENT [employer] HMO REPLACEMENT [employer]MO REPLACEMENT [employer] H[employer] REPLACEMENT [employer] H[employer] REPLACEMENT Care Teams Black Leather Buffer Relationship Specialty Start Date End Date Florida Portillo PA [address] [place] [id number] PCP - General Physician Alum Operator 12/01/24 Additional Source Comments The information contained in this document represents components of the legal health record. It is not the complete legal health record.[facility]
== END 2025-02-25 11:14 | disposition home or self-care (01) ==
LOC: HO.HSMS 10:39
PROVIDERS: PCP Physician Assistant Medical; Visit Provider Psychiatry & Neurology Neurology
DX: R41.89 Other symptoms and signs involving cognitive functions and awareness (principal)
CPT/HCPCS: 99204; G2211

== ENCOUNTER → 2025-02-25 10:38 | Outpatient (BNVA) | payer MEDICARE, SELFPAY | PROVIDERS: PCP Physician Assistant Medical; Visit Provider Psychiatry & Neurology Neurology | DX: R41.89 Other symptoms and signs involving cognitive functions and awareness (principal) | CPT/HCPCS: 99202 ==

== ENCOUNTER 2025-04-05 09:56 | Outpatient (AMB) | payer MEDICARE, SELFPAY ==
--- NOTE | 2025-04-05 10:00 | A.OFFPC_ITS ---
Vital Signs 04/05/25 10:07 Height 5 ft 4 in Weight 131 lb BMI 22.5 BP 124/62 Blood Pressure Location Rt brachial Position Sitting Respiration 14 Pulse 56 Pulse Source Pulse Oximeter Temp 97.3 F Temp Source Oral Pulse Oximetry (%) 98 Oxygen Delivery Method Room Air Intake Visit Reasons: Bilateral upper eye lid surgery on both eyes Intake Note: bilateral upper eye lid surgery on both eyes Medical Center Representative Required: No Allergies morphine Allergy (Intermediate, Verified 04/05/25 10:04) Nausea Medication List - Last Reconciled 04/05/25 by NACHO Mcwilliams amlodipine 5 mg PO DAILY atenolol 25 mg PO DAILY buspirone mg PO carbamide peroxide 6.5% (Debrox) 5 drps otic (ears) DAILY 5 days cyanocobalamin (vitamin B-12) 1,000 mcg PO DAILY lisinopril 40 mg PO DAILY mirabegron ER 50 mg PO DAILY oxybutynin chloride ER 5 mg PO DAILY sertraline 50 mg PO DAILY Tobacco use date assessed: 04/05/25 Fall risk assessment: No Falls in past year Last assessed Fall Risk: 04/05/25 Dental Screening Dental Screen Date: 04/05/25 Did you have a dental visit in the last 12 months?: Yes Did you have a dental problem in the last 6 months where you did not have access to dental care?: No Was dental information given to patient?: Patient has dentist HPI HPI Comments History of Present Illness Details This is an 89-year-old female with a past medical history of hypertension, hyperlipidemia, impaired fasting glucose and degenerative disc disease of the spine presenting for a preoperative exam. She is having bilateral upper eyelid surgery with Dr. Crawford on 04/28/2025. She wears glasses. Eyelid drooping interferes with her peripheral vision. She has a history of impaired fasting glucose, but she has not prediabetic or diabetic. She is a nonsmoker. Morphine is listed as an allergy with a reaction of nausea. She has no other known allergies or a history of adverse reaction to anesthesia. Hypertension is well-controlled on atenolol 25 mg, lisinopril 40 mg and amlodipine 5 mg. She has a history of an abnormal EKG and was referred to Cardiology. EKG in September 2024 showed left axis deviation, LVH with QRS widening and could not rule out anteroseptal infarct. She had an echocardiogram completed on 09/17/2024 which showed normal LVEF 60-65%, impaired relaxation filling pattern and no left ventricular hypertrophy. She has a consult on 04/13/2025 at [facility] She denies dyspnea, chest pain, palpitations, pedal edema, dizziness and weakness. She has a history of frequent UTIs and urinary incontinence. She says this has improved significantly on her current regimen of Myrbetriq and oxybutynin. Denies UTI symptoms currently. Patient was evaluated for cognitive decline and saw Neurology. This is thought to be due to age-related changes and mood. She is doing well on sertraline. Denies recent illnesses. ROS: Constitutional: No unexplained weight loss, fever, chills, fatigue or night sweats. Eyes: No vision changes, blurry vision, double vision, eye pain, eye redness, eye discharge. ENT: No hearing loss, sneezing, congestion, runny nose or sore throat. Respiratory: No shortness of breath, cough or sputum production. Cardiovascular: No chest pain, chest pressure or chest discomfort. No palpitations or pedal edema. Gastrointestinal: No anorexia, nausea, vomiting or diarrhea. No abdominal pain or blood in stool. Genitourinary: No dysuria, hematuria, urinary frequency. Neurologic: No headache, dizziness, syncope, unilateral weakness, ataxia, numbness or tingling in the extremities. Musculoskeletal: She has chronic back pain. No new joint pains, muscle pains or swelling. Hematologic/Lymphatics: No bleeding or bruising. No painful lymph nodes. Skin: No rash Physical exam: Constitutional: Alert, in no distress. Eyes: Pupils are equal, round and reactive to light. Extraocular muscles intact. Mouth/throat: No erythema, exudates or lesions Neck: Supple, Full range of motion. No lymphadenopathy. Respiratory: Clear to auscultation. Cardiovascular: S1 S2 regular. No murmurs. Gastrointestinal: Abdomen soft, non-tender, non-distended. Normal bowel sounds. No palpable masses. Genitourinary: No costovertebral angle tenderness. Neurologic: No focal neurological deficits. Skin: No rashes Musculoskeletal: No gross deformities. Extremities: Warm and well perfused. No clubbing, cyanosis or edema. Intact peripheral pulses bilaterally. [facility] Medical History (Updated 04/05/25 @ 10:26 by NACHO Mcwilliams) Pre-op evaluation Weight loss Cognitive decline Memory problem Abnormal EKG Sensation of pressure in bladder area Urinary incontinence Word finding difficulty Confusion History of UTI Hospital discharge follow-up Bilateral pleural effusion Lumbar degenerative disc disease Anxiety Fatigue Chronic back pain DISH (diffuse idiopathic skeletal hyperostosis) Impaired fasting glucose Right-sided low back pain without sciatica Constipation Hypertension Hyperlipidemia Family History Mother HTN (hypertension) Thyroid disorder Father HTN (hypertension) Cardiovascular disease Alcohol abuse Maternal Grandfather Cardiovascular disease Thyroid disorder Other FH: mental illness Substance use Social History (Updated 04/05/25 @ 10:06 by Irvin Sánchez MA) Housing: Condominium Alcohol intake: current Patient Tobacco Use Status: Never used Tobacco e-Cigarette/Vaping Use: Never Used Second Hand Smoke Exposure: No Use of substances other than those prescribed or required for medical reasons: No service: No Current occupational status: retired Current occupational exposures/hazards: No Cognitive needs: No Hearing needs: No Vision needs: Yes Questionnaire Thrive Questionnaire Date Thrive assessed: 06/11/24 I am a: Patient What is your living situation today?: I have a steady place to live Within the past 12 months, did the food you bought not last and you didn't have the money to get more?: I choose not to answer this question Within the past 12 months, did you worry whether your food would run out before you got money to buy more?: I choose not to answer this question Do you have trouble paying for medicines?: No Do you have trouble getting transportation to medical appointments?: No Do you have trouble paying your heating and electricity bill?: No Do you have trouble taking care of your child, family member or friend?: I choose not to answer this question Do you have trouble with day-to-day activities such as bathing, preparing meals, shopping, managing finances, etc.?: No Are you currently unemployed and looking for a job?: No Are you interested in more education?: No Please select the resources that you would like help with: None Currently or been in a relationship where the following occur: I choose not to answer THRIVE Score: 0 AUDIT C Alcohol Use Questionnaire (AUDIT-C) 1. How often do you have a drink containing alcohol?: 4 or more times a week 2. How many drinks containing alcohol do you have on a typical day when you are drinking?: 1 or 2 3. How often do you have six or more drinks on one occasion?: Never Total Score: 4 PHONG-7 AMB Questionnaire PHONG-7 Date PHONG - 7 assessed: 10/08/24 Source: Developed by Drs. Deacon Arias, Shahida Leach, Bryan Cervantes and colleagues, with an educational zia from [employer]. Physical exam (Primary Care) Vital Signs: Last Vital Signs Temp 97.3 F 04/05/25 10:07 Pulse 56 04/05/25 10:07 Resp 14 04/05/25 10:07 BP 124/62 04/05/25 10:07 Pulse Ox 98 04/05/25 10:07 Oxygen Delivery Method Room Air 04/05/25 10:07 BMI result Body Mass Index 22.5 Tobacco/Smoking Status: Tobacco use Status Tobacco use date assessed 04/05/25 04/05/25 10:09 Patient Tobacco Use Status Never used Tobacco 04/05/25 10:06 e-Cigarette/Vaping Use Never Used 04/05/25 10:06 Thrive Assessment: Date of Thrive Assessment Date Thrive assessed 06/11/24 04/05/25 10:02 Currently or been in a relationship where the following occur: I choose not to answer Office Procedures EKG Details: sinus bradycardia, 52 bpm, left axis deviation, LVH with QRS widening (116 ms), cannot rule out septal infarct 32468-[id number], Complete Coding Level of Care Code Est Pt Level 4 (56790) Complex EM visit Add On G2211 Diagnoses Pre-op evaluation Z01.818 Abnormal EKG R94.31 Primary hypertension I10 Hypertension type: primary hypertension Impaired fasting glucose R73.01 CPT Codes EKG - CPT: 89530-Bhygbzspomzjgxsmh, Complete ([id number]) Assessment & Plan Assessment & Plan (1) Pre-op evaluation: Code(s): Z01.818 - Encounter for other preprocedural examination Category: Medical (2) Abnormal EKG: Code(s): R94.31 - Abnormal electrocardiogram [ECG] [EKG] Category: Medical (3) Hypertension: Code(s): I10 - Essential (primary) hypertension Category: Medical Qualifiers: Hypertension type: primary hypertension Qualified Code(s): I10 - Essential (primary) hypertension (4) Impaired fasting glucose: Code(s): R73.01 - Impaired fasting glucose Category: Medical Plan In summary this is an 89-year-old female who presented for preoperative examination for bilateral upper eyelid surgery. Mets score 4. She is at average risk for this low risk procedure. She has a history of abnormal EKG, and she does have a cardiology consult for this on 04/13/2025, but she denies anginal symptoms, and she is euvolemic, and her echocardiogram was essentially normal. She has mild bradycardia on a beta alfredo, and she is asymptomatic. Hypertension is controlled. She can proceed with surgery. She will have lab work done today. Medication instructions including avoidance of NSAIDs for 7 days prior to procedure will be sent to her patient portal. Orders: Orders UA w Microscopic 04/05/25 I10 - Essential (primary) hypertension, R94.31 - Abnormal electrocardiogram [ECG] [EKG], Z01.818 - Encounter for other preprocedural examination Urine Culture 04/05/25 I10 - Essential (primary) hypertension, R94.31 - Abnormal electrocardiogram [ECG] [EKG], Z01.818 - Encounter for other preprocedural examination Comprehensive Met. Panel 04/05/25 I10 - Essential (primary) hypertension, R94.31 - Abnormal electrocardiogram [ECG] [EKG], Z01.818 - Encounter for other preprocedural examination Prothrombin Time INR 04/05/25 I10 - Essential (primary) hypertension, R94.31 - Abnormal electrocardiogram [ECG] [EKG], Z01.818 - Encounter for other preprocedural examination AMB EKG-In Office 04/05/25 R94.31 - Abnormal electrocardiogram [ECG] [EKG] Hemoglobin A1c 04/05/25 R73.9 - Hyperglycemia, unspecified TSH reflex Free T4 04/05/25 I10 - Essential (primary) hypertension, R94.31 - Abnormal electrocardiogram [ECG] [EKG], Z01.818 - Encounter for other preprocedural examination Complete Blood Count no Diff 04/05/25 I10 - Essential (primary) hypertension, R94.31 - Abnormal electrocardiogram [ECG] [EKG], Z01.818 - Encounter for other preprocedural examination
[2025-04-05 10:07] VITALS: BP 124/62; PULSE 56; RESP 14; TEMP 36.3; O2SAT 98; BMI 22.5
--- OUTSIDE RECORDS SUMMARY | 2025-04-05 11:36 | XMS_ITS | Clinical Summary ---
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 Family History Medical History Relation Comments Hypertension [...] 2025 , 03/01/2023, 02/26/2022, Additional history exists COVID-19 VACCINE ( season) 2025 10/04/2024, 02/29/2024, 03/01/2023, Additional history exists RSV VACCINE Completed 03/01/2023 ZOSTER VACCINES Completed 12/09/2023, 10/14/2021 HEPATITIS A VACCINES Aged Out No long [...] this topic Medical Devices Not on file Insurance MEDICARE HMO REPLACEMENT [place] MED[place] HMO REPLACEMENT MEDICARE HMO REPLACEMENT MEDICARE HMO REPLACEMENT MEDICARE HMO REPLACEMENT MEDICARE HMO REPLACEMENT Care Teams Assembler Handbags Relationship Specialty Start Date End Date Florida Portillo PA [address] [place] [id number] PCP - General Physician Body Man 12/01/24 Additional Source Comments The information contained in this document represents components of the legal health record. It is not the complete legal health record.[facility]
== END 2025-04-05 11:00 | disposition home or self-care (01) ==
LOC: HO.HMCFM 09:57
PROVIDERS: PCP Physician Assistant Medical; Visit Provider Physician Assistant Medical
DX: Z01.818 Encounter for other preprocedural examination (principal); R94.31 Abnormal electrocardiogram [ECG] [EKG]; I10 Essential (primary) hypertension; R73.01 Impaired fasting glucose

== ENCOUNTER 2025-04-05 09:56 | Outpatient (REF) | payer MEDICARE, SELFPAY ==
[2025-04-05 14:25] LABS: Hematocrit 43.3 % (37.0-47.0); Hemoglobin 14.6 g/dl (12.0-16.0); INTERNATIONAL NORM RATIO 1.0 (0.9-1.1); Mean Corpuscular HGB Conc 33.7 g/dl (31.0-35.0); Mean Corpuscular Hemoglobin 29.8 pg (27.0-33.0); Mean Corpuscular Volume 88.4 fL (80.0-98.0); NRBC Abs Auto 0.000 X10*3/uL (0.0-0.012); NRBC Pct Auto 0.0 /100WBC (0.0-0.2); Platelet Count 203 X10*3/uL (160-400); Prothrombin Time 11.9 SEC (10.9-12.4); Red Blood Count 4.90 X10*6/uL (4.20-5.50); White Blood Count 7.3 X10*3/uL (4.8-10.8)
[2025-04-05 15:06] LABS: Alanine Aminotransferase 11 U/L (0-31); Albumin Level 4.2 g/dL (3.5-5.0); Alkaline Phosphatase 63 U/L (39-117); Anion Gap 10 (12-20); Aspartate Amino Transferase 20 U/L (5-31); Blood Urea Nitrogen 14 mg/dL (9-16); Calcium 9.0 mg/dL (8.4-10.2); Carbon Dioxide 30 mmol/L (22-29); Chloride 104 mmol/L (96-108); Estimated Glomerular Filt Rate > 60; Potassium 3.8 mmol/L (3.3-5.1); Sodium 140 mmol/L (135-145); Total Protein 6.9 g/dL (6.5-8.0)
[2025-04-05 18:37] LABS: Appearance Urine Clear; Glucose Urine UA Negative (Negative); PH 6.0 (5.0-9.0); Specific Gravity - Urine 1.020 (1.005-1.025); UMIC TRIGGER UA YES
== END 2025-04-05 09:57 | disposition home or self-care (01) ==
LOC: HO.WFDLDS 09:56
PROVIDERS: PCP Physician Assistant Medical; Visit Provider Physician Assistant Medical
DX: Z01.818 Encounter for other preprocedural examination (principal); R94.31 Abnormal electrocardiogram [ECG] [EKG]; I10 Essential (primary) hypertension; R73.9 Hyperglycemia, unspecified; R73.01 Impaired fasting glucose; Z79.899 Other long term (current) drug therapy
CPT/HCPCS: 36415; 80053; 81001; 83036; 84443; 85027; 85610; 87086; 93005; 99212

== ENCOUNTER 2025-04-13 10:58 | Outpatient (AMB) | payer MEDICARE, SELFPAY ==
--- NOTE | 2025-04-13 11:02 | MHC.OFFVIS ---
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 Patient herself denies any previous cardiac history. Denies any history of coronary disease or myocardial infarction or cardiomyopathy or in fact any other cardiac issues. She also denies any symptoms like exertional angina or shortness of breath or in fact any cardiac symptoms at all. She states that she is under lot of stress because of family issues. She is listed to be on blood pressure medications. [facility] Medical History Pre-op evaluation Weight loss Cognitive decline Memory problem Abnormal EKG Sensation of pressure in bladder area Urinary incontinence Word finding difficulty Confusion History of UTI Hospital discharge follow-up Bilateral pleural effusion Lumbar degenerative disc disease Anxiety Fatigue Chronic back pain DISH (diffuse idiopathic skeletal hyperostosis) Impaired fasting glucose Right-sided low back pain without sciatica Constipation Hypertension Hyperlipidemia Family History Mother HTN (hypertension) Thyroid disorder Father HTN (hypertension) Cardiovascular disease Alcohol abuse Maternal Grandfather Cardiovascular disease Thyroid disorder Other FH: mental illness Substance use Social History Housing: Condominium Alcohol intake: current Patient Tobacco Use Status: Never used Tobacco e-Cigarette/Vaping Use: Never Used Second Hand Smoke Exposure: No service: No Current occupational status: retired Current occupational exposures/hazards: No Cognitive needs: No Hearing needs: No Vision needs: Yes Review of Systems Const Denies chills, Denies fatigue, Denies fever(s), Denies frequent falls, Denies weakness, Denies weight gain and Denies weight loss ENT Denies dizziness Card Denies chest pain, Denies leg edema, Denies lightheadedness, Denies palpitations, Denies dyspnea and Denies dyspnea on exertion Resp Denies cough, Denies dyspnea and Denies dyspnea on exertion GI Denies hematochezia Musc Denies abnormal gait, Denies muscle weakness, Denies numbness, Denies radiating pain into limb and Denies tingling Neuro Denies abnormal gait, Denies dizziness, Denies frequent falls, Denies numbness, Denies tingling and Denies weakness Endo Denies fatigue and Denies palpitations Physical Exam Vital Signs: Last Vital Signs Pulse 59 04/13/25 11:05 BP 110/70 04/13/25 11:05 BMI result Body Mass Index 22.6 Const General: comfortable and no acute distress Orientation/consciousness: patient oriented x3 HEENT Other: Unremarkable Head: Yes normal to inspection Neck Neck: Yes normal visual inspection Chest Chest palpation & inspection: normal inspection of the chest Resp Auscultation: clear to auscultation bilaterally Cardio Palpation: normal PMI Heart sounds: S1 normal heart sound present, S2 normal heart sound present, no gallops, no murmurs and no rubs GI Palpation (GI): Soft to palpation Back/Spine/Pelvis Other: unremarkable Skin General skin exam: no rashes or lesions noted Neuro General: patient oriented x3 Extrem General: Yes normal to inspection Psych Mental Status: mental status grossly normal Assessment & Plan Assessment & Plan (1) Abnormal EKG: Code(s): R94.31 - Abnormal electrocardiogram [ECG] [EKG] Category: Medical (2) Hypertension: Code(s): I10 - Essential (primary) hypertension Category: Medical Qualifiers: Hypertension type: primary hypertension Qualified Code(s): I10 - Essential (primary) hypertension Plan In the EKG from last month, underlying rhythm is sinus bradycardia at 52/Min; left axis deviation; left ventricular hypertrophy pattern; cannot exclude old septal infarct but could be related to body habitus and lead placement; normal HI and corrected QT. In the echocardiogram, LVEF is 60-65%. Mild diastolic dysfunction. Mild aortic calcification. Mild mitral thickening. Otherwise unremarkable. Overall, suspect EKG changes related to hypertension. Clinically, she has got no symptoms whatsoever. In this context, continue her usual medications for hypertension. Advised to contact us for any issues like chest pains or any other cardiac symptoms. She understands that. Follow-up can be planned accordingly. Discussion Notes I discussed with the patient that there are no current symptoms indicating a need for further cardiac evaluation. We talked about the importance of managing stress and advised her to reach out if she experiences any new symptoms. Patient was informed and verbally consented to the use of an ambient scribe for clinic note documentation during this visit. Patient Instructions: - Contact the clinic if new symptoms arise. Coding Level of Care Code New Pt Level 3 (45250) Diagnoses Abnormal EKG R94.31 Primary hypertension I10 Hypertension type: primary hypertension
[2025-04-13 11:05] VITALS: BP 110/70; PULSE 59; BMI 22.6
--- OUTSIDE RECORDS SUMMARY | 2025-04-13 13:23 | XMS_ITS | Clinical Summary ---
Author Organization [facility] Address [address] [place] [address] Phone Care Team Providers Care Early Years Teacher Name Role Phone [place] Portillo Primary Care [...] HMO REPLACEMENT MEDICARE HMO REPLACEMENT Care Teams Early Years Teacher Relationship Specialty Start Date End Date Florida Portillo PA [address] [place] [id number] PCP - General Physician Account Manager Trainee 12/01/24 Additional Source Comments The information contained in this document represents components of the legal health record. It is not the complete legal health record.[facility]
== END 2025-04-13 11:16 | disposition home or self-care (01) ==
LOC: HO.HCS 10:58
PROVIDERS: PCP Physician Assistant Medical; Visit Provider Internal Medicine
DX: R94.31 Abnormal electrocardiogram [ECG] [EKG] (principal); I10 Essential (primary) hypertension
CPT/HCPCS: 99203

== ENCOUNTER → 2025-04-13 10:58 | Outpatient (BNVA) | payer MEDICARE, SELFPAY | PROVIDERS: PCP Physician Assistant Medical; Visit Provider Internal Medicine | DX: I10 Essential (primary) hypertension (principal); R94.31 Abnormal electrocardiogram [ECG] [EKG] | CPT/HCPCS: 99202 ==

== ENCOUNTER 2025-05-10 10:10 | Outpatient (AMB) | payer MEDICARE, SELFPAY ==
--- NOTE | 2025-05-10 10:16 | MHC.PC.OV ---
Vital Signs 05/10/25 10:21 Height 5 ft 4 in Weight 128 lb 6 oz BMI 22.0 BP 114/64 Blood Pressure Location Rt brachial Position Sitting Respiration 14 Pulse 60 Pulse Source Pulse Oximeter Temp 97.5 F Temp Source Temporal Artery Scan Pulse Oximetry (%) 98 Oxygen Delivery Method Room Air Intake Visit Reasons: med review Intake Note: Mary Jo presents in the office today for a medication review. 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 Post menopausal: Yes Allergies morphine Allergy (Intermediate, Verified 05/10/25 10:19) Nausea Tobacco use date assessed: 05/10/25 Dental Screening Dental Screen Date: 05/10/25 Did you have a dental visit in the last 12 months?: Yes Did you have a dental problem in the last 6 months where you did not have access to dental care?: No Was dental information given to patient?: Patient declined HPI HPI Comments History of Present Illness Details This is an 89-year-old female with a past medical history of hypertension, hyperlipidemia, impaired fasting glucose, degenerative disc disease of the spine, dermatitis and right-sided back pain presenting for follow up. Her eyelid surgery went well. The stitches were removed. She can see much better. She is doing much better. Her family situation has improved. Her daughter completed chemo. She has one more surgery. Her sister received the stem cell transplant. Her daughter and grandson are moving into an apartment in [place] with her granddaughter and her granddaughter's son. It was stressful to have everybody in her condo. 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 Anxiety-she increased sertraline to 75 mg 2 weeks ago due to stress related to her family. Her daughter completed chemo. She has a another surgery, and the patient's sister received a stem cell transplant. Her daughter is living in an apartment with her granddaughter and her granddaughter son. Her daughter is going to be possibly moving to a 1 bedroom apartment in [place] which will improve things. They were previously living with the patient and her condo which was a challenging living situation. The patient continues to pursue photography and art. This makes her very happy. She was on Lexapro in the past which was stopped during hospitalization presumably due to prolonged QT on EKG though at that time she also had electrolyte abnormalities and influenza and was dehydrated. Patient saw Neurology on 02/25/2025 for evaluation of cognitive decline and brain fog. Suspected this was due to mood and aging. MMSE 30/30. MRI was nonfocal. Patient and I both feel that some of this was related to her illness and hospitalization and stress this year. She feels her memory is doing better now. She saw Dr. Baldwin in April for re-evaluation of the previously abnormal EKG on 09/14/2024 which showed left axis deviation, left ventricular hypertrophy and QRS widening and possible anterior septal infarct. She denies chest pain, shortness of breath, dizziness, leg swelling. EKG changes thought to be due to hypertension, and since she has no concerning symptoms no further cardiac workup was required. She saw Dr. Jacobo, urogynecology. She is taking Oxybutynin. She reports she had her flu shot this season. ROS: Constitutional: No fevers, chills or fatigue. Eyes: No vision changes, blurry vision, double vision, eye pain, eye redness, eye discharge. Respiratory: No shortness of breath, cough or sputum production. Cardiovascular: No chest pain, chest pressure or chest discomfort. No palpitations or pedal edema. Gastrointestinal: No anorexia, nausea, vomiting or diarrhea. No abdominal pain or blood in stool. Neurologic: No headache,syncope, seizure, tremor unilateral weakness, ataxia, numbness or tingling in the extremities. Musculoskeletal: +chronic back pain,, no new pains, joint pains or swelling Endocrine: No cold or heat intolerance. Psychiatric: See HPI. No SI or HI. Physical exam: Constitutional: Alert, in no distress. Well-appearing . Eyes: Subtle ecchymosis in the creases of the upper eyelids. Neck: Supple, Full range of motion. No lymphadenopathy. No palpable masses. Respiratory: Clear to auscultation. Abdomen: Soft, nontender, no organomegaly or palpable masses Cardiovascular: S1 S2 regular. No murmurs. No carotid bruits Neurologic:?Alert and oriented x 3, no focal deficits observed COUNT INCLUDES THE [facility] Medical History Pre-op evaluation Weight loss Cognitive decline Memory problem Abnormal EKG Sensation of pressure in bladder area Urinary incontinence Word finding difficulty Confusion History of UTI Hospital discharge follow-up Bilateral pleural effusion Lumbar degenerative disc disease Anxiety Fatigue Chronic back pain DISH (diffuse idiopathic skeletal hyperostosis) Impaired fasting glucose Right-sided low back pain without sciatica Constipation Hypertension Hyperlipidemia Family History Mother HTN (hypertension) Thyroid disorder Father HTN (hypertension) Cardiovascular disease Alcohol abuse Maternal Grandfather Cardiovascular disease Thyroid disorder Other FH: mental illness Substance use Social History (Updated 05/10/25 @ 10:21 by Juanita Luna CMA) Housing: Condominium Alcohol intake: current Patient Tobacco Use Status: Never used Tobacco e-Cigarette/Vaping Use: Never Used Second Hand Smoke Exposure: No service: No Current occupational status: retired Current occupational exposures/hazards: No Cognitive needs: No Hearing needs: No Vision needs: Yes Questionnaire Thrive Questionnaire Date Thrive assessed: 06/11/24 I am a: Patient What is your living situation today?: I have a steady place to live Within the past 12 months, did the food you bought not last and you didn't have the money to get more?: I choose not to answer this question Within the past 12 months, did you worry whether your food would run out before you got money to buy more?: I choose not to answer this question Do you have trouble paying for medicines?: No Do you have trouble getting transportation to medical appointments?: No Do you have trouble paying your heating and electricity bill?: No Do you have trouble taking care of your child, family member or friend?: I choose not to answer this question Do you have trouble with day-to-day activities such as bathing, preparing meals, shopping, managing finances, etc.?: No Are you currently unemployed and looking for a job?: No Are you interested in more education?: No Please select the resources that you would like help with: None Currently or been in a relationship where the following occur: I choose not to answer THRIVE Score: 0 PHONG-7 AMB Questionnaire PHONG-7 Date PHONG - 7 assessed: 10/08/24 Source: Developed by Drs. Deacon Arias, Shahida Leach, Bryan Cervantes and colleagues, with an educational zia from [employer]. Physical exam (Primary Care) Vital Signs: Last Vital Signs Temp 97.5 F 05/10/25 10:21 Pulse 60 05/10/25 10:21 Resp 14 05/10/25 10:21 BP 114/64 05/10/25 10:21 Pulse Ox 98 05/10/25 10:21 Oxygen Delivery Method Room Air 05/10/25 10:21 BMI result Body Mass Index 22.0 Tobacco/Smoking Status: Tobacco use Status Tobacco use date assessed 05/10/25 05/10/25 10:24 Patient Tobacco Use Status Never used Tobacco 05/10/25 10:21 e-Cigarette/Vaping Use Never Used 05/10/25 10:21 Thrive Assessment: Date of Thrive Assessment Date Thrive assessed 06/11/24 05/10/25 10:18 Currently or been in a relationship where the following occur: I choose not to answer Coding Level of Care Code Complex visit Add On G2211 Diagnoses Anxiety F41.9 Cognitive decline R41.89 Primary hypertension I10 Hypertension type: primary hypertension Assessment & Plan Assessment & Plan (1) Anxiety: Code(s): F41.9 - Anxiety disorder, unspecified Category: Medical Plan: Continue increased dose of sertraline 75 mg daily. We will have a telehealth appointment in 4 weeks to re-evaluate the dose. She declines referral to therapy. (2) Cognitive decline: Code(s): R41.89 - Other symptoms and signs involving cognitive functions and awareness Category: Medical Plan: Seen by neurology. MRI nonfocal. Continue to support emotional health and engage in family and social life. Adjust SSRI dose as needed. (3) Hypertension: Code(s): I10 - Essential (primary) hypertension Category: Medical Qualifiers: Hypertension type: primary hypertension Qualified Code(s): I10 - Essential (primary) hypertension Plan: Controlled. Continue current regimen. Plan Schedule medical wellness visit in 5-6 months.
[2025-05-10 10:21] VITALS: BP 114/64; PULSE 60; RESP 14; TEMP 36.4; O2SAT 98; BMI 22.0
== END 2025-05-10 10:54 | disposition home or self-care (01) ==
LOC: HO.HMCFM 10:11
PROVIDERS: PCP Physician Assistant Medical; Visit Provider Physician Assistant Medical
DX: F41.9 Anxiety disorder, unspecified (principal); R41.89 Other symptoms and signs involving cognitive functions and awareness; I10 Essential (primary) hypertension

== ENCOUNTER → 2025-05-10 10:10 | Outpatient (BNVA) | payer MEDICARE, SELFPAY | PROVIDERS: PCP Physician Assistant Medical; Visit Provider Physician Assistant Medical | DX: F41.9 Anxiety disorder, unspecified (principal); R41.89 Other symptoms and signs involving cognitive functions and awareness; I10 Essential (primary) hypertension; Z79.899 Other long term (current) drug therapy | CPT/HCPCS: 99212 ==

== ENCOUNTER 2025-05-27 11:28 | Outpatient (AMB) | payer MEDICARE, SELFPAY ==
--- NOTE | 2025-05-27 11:31 | MHC.PC.OV ---
Vital Signs 05/27/25 11:35 Height 5 ft 4 in Weight 128 lb 6 oz BMI 22.0 BP 110/70 Blood Pressure Location Lt brachial Position Sitting Respiration 14 Pulse 64 Pulse Source Pulse Oximeter Temp 97.8 F Temp Source Temporal Artery Scan Pulse Oximetry (%) 98 Oxygen Delivery Method Room Air Intake Visit Reasons: Bulging Vein left foot Intake Note: Mary Jo presents in the office for a bulging vein on the top of her left foot. 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 Is last menstrual period known: No Post menopausal: Yes Patient : No Allergies morphine Allergy (Intermediate, Verified 05/27/25 11:34) Nausea Tobacco use date assessed: 05/27/25 Dental Screening Dental Screen Date: 05/27/25 Did you have a dental visit in the last 12 months?: Yes Did you have a dental problem in the last 6 months where you did not have access to dental care?: No Was dental information given to patient?: Patient has dentist HPI HPI Comments History of Present Illness Details This is a an 89-year-old female with a past medical history of hypertension, hyperlipidemia, impaired fasting glucose and mild cognitive decline presenting for bulging veins on the top of the left foot. 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 Jacob, 2 weeks ago who noted the bulging veins and cautioned her that if they burst it would cause bleeding. Patient says they are sensitive. She has had varicose veins for years though she does note increased swelling and sensitivity for the past 1-2 weeks of the veins on top of her foot. No leg swelling, calf pain, redness or history of clots. ROS: Constitutional: No fevers or chills. Respiratory: No shortness of breath, cough or sputum production. Cardiovascular: No chest pain or palpitations Hematologic/Lymphatics: No bleeding or bruising. Skin: No rash Physical exam: Constitutional: Alert, in no distress. Respiratory: Clear to auscultation. Cardiovascular: S1 S2 regular. No murmurs Lower extremities: Bilateral varicose veins noted on the anterior lower legs and the tops of the feet. There are 3 approximately 1 cm segments of the veins on the top of the left foot that are buldging, warm and mildly erythematous and mildly tender to palpation. No calf erythema or palpable cords or lower extremity edema. Intact DP pulses. [facility] Medical History (Updated 05/28/25 @ 13:05 by NACHO Mcwilliams) Superficial thrombophlebitis Varicose veins of left foot Pre-op evaluation Weight loss Cognitive decline Memory problem Abnormal EKG Sensation of pressure in bladder area Urinary incontinence Word finding difficulty Confusion History of UTI Hospital discharge follow-up Bilateral pleural effusion Lumbar degenerative disc disease Anxiety Fatigue Chronic back pain DISH (diffuse idiopathic skeletal hyperostosis) Impaired fasting glucose Right-sided low back pain without sciatica Constipation Hypertension Hyperlipidemia Family History Mother HTN (hypertension) Thyroid disorder Father HTN (hypertension) Cardiovascular disease Alcohol abuse Maternal Grandfather Cardiovascular disease Thyroid disorder Other FH: mental illness Substance use Social History (Updated 05/27/25 @ 11:35 by Juanita Luna CMA) Housing: Condominium Alcohol intake: current Patient Tobacco Use Status: Never used Tobacco e-Cigarette/Vaping Use: Never Used Second Hand Smoke Exposure: No Use of substances other than those prescribed or required for medical reasons: No Patient : No service: No Current occupational status: retired Current occupational exposures/hazards: No Cognitive needs: No Hearing needs: No Vision needs: Yes Questionnaire Thrive Questionnaire Date Thrive assessed: 06/11/24 I am a: Patient What is your living situation today?: I have a steady place to live Within the past 12 months, did the food you bought not last and you didn't have the money to get more?: I choose not to answer this question Within the past 12 months, did you worry whether your food would run out before you got money to buy more?: I choose not to answer this question Do you have trouble paying for medicines?: No Do you have trouble getting transportation to medical appointments?: No Do you have trouble paying your heating and electricity bill?: No Do you have trouble taking care of your child, family member or friend?: I choose not to answer this question Do you have trouble with day-to-day activities such as bathing, preparing meals, shopping, managing finances, etc.?: No Are you currently unemployed and looking for a job?: No Are you interested in more education?: No Please select the resources that you would like help with: None Currently or been in a relationship where the following occur: I choose not to answer THRIVE Score: 0 PHONG-7 AMB Questionnaire PHONG-7 Date PHONG - 7 assessed: 10/08/24 Source: Developed by DrsElham Arias, Shahida Leach, Bryan Cervantes and colleagues, with an educational zia from [employer]. Physical exam (Primary Care) Vital Signs: Last Vital Signs Temp 97.8 F 05/27/25 11:35 Pulse 64 05/27/25 11:35 Resp 14 05/27/25 11:35 BP 110/70 05/27/25 11:35 Pulse Ox 98 05/27/25 11:35 Oxygen Delivery Method Room Air 05/27/25 11:35 BMI result Body Mass Index 22.0 Tobacco/Smoking Status: Tobacco use Status Tobacco use date assessed 05/27/25 05/27/25 11:38 Patient Tobacco Use Status Never used Tobacco 05/27/25 11:35 e-Cigarette/Vaping Use Never Used 05/27/25 11:35 Thrive Assessment: Date of Thrive Assessment Date Thrive assessed 06/11/24 05/27/25 11:33 Currently or been in a relationship where the following occur: I choose not to answer Coding Level of Care Code Est Pt Level 4 (77575) Diagnoses Superficial thrombophlebitis I80.9 Varicose veins of left foot I83.92 Assessment & Plan Assessment & Plan (1) Superficial thrombophlebitis: Code(s): I80.9 - Phlebitis and thrombophlebitis of unspecified site Category: Medical (2) Varicose veins of left foot: Code(s): I83.92 - Asymptomatic varicose veins of left lower extremity Category: Medical Plan Patient appears to have superficial thrombophlebitis of the varicose veins on the top of the left foot. No exam findings of phlebitis near the deep veins/popliteal vein. Recommended taking a leave or ibuprofen with food and applying warm compresses and elevating the lower extremity. She also uses compression stockings. Advised patient to follow up if she develops lower extremity edema, calf pain or the appearance of the veins worsens. Refer to vascular surgery. She verbalizes understanding and accepts this treatment plan. Orders: Referrals Vascular Surgery Referral I80.9 - Phlebitis and thrombophlebitis of unspecified site, I83.92 - Asymptomatic varicose veins of left lower extremity
[2025-05-27 11:35] VITALS: BP 110/70; PULSE 64; RESP 14; TEMP 36.6; O2SAT 98; BMI 22.0
--- OUTSIDE RECORDS SUMMARY | 2025-05-27 15:05 | XMS_ITS | Patient Health Record ---
Author Organization [facility] Address [address] [place] [address] Care Team Providers Care Inventory Transcriber Name Role Phone DANIEL OBADNO Primary Care Provider [phone] Allergies Allergen (clinical drug ingredient) Drug/Non Drug Allergy documented on EMR Reaction Allergy Type Onset Date Status morphine Morphine stomach upset Drug Allergy Act katherin Reason For Referral No Information Medications Medication SIG (Take, Route, Frequency, Duration) Notes Start Date End Date Status Vitamin D3 125 MCG (5000 UT) Capsule 1 cap(s) orally once a day Active Lisinopril 40 MG Tablet TAKE 1 TABLET BY MOUTH ONCE DAILY Active Escitalopram Oxalate 10 MG Tablet TAKE 1 TABLET BY MOUTH ONCE DAILY; Duration: 90 Active amLODIPine Besylate 5 MG Tablet TAKE 1 TABLET BY MOUTH ONCE DAILY Active Atenolol 100 MG Tablet TAKE 1 TABLET BY MOUTH ONCE DAILY Active Ketoconazole 2 % Cream 1 application Ext ernally Once a day; Duration: 14 day(s) Active Atorvastatin Calcium 40 MG Tablet TAKE 1 TABLET BY MOUTH ONCE DAILY AT BEDTIME Active Immunizations Vaccine Route Administration Date Status Comme nts Influenza Vaccine[158] IM Intramuscular 03/20/2018 Administered Influenza High Dose - Seqirus Influenza, Fluzone HD 65+ IM Intramuscular 02/18/2017 Administered Influenza, Fluzone HD 65+ IM Intramuscular 02/19/2020 Administered Pneumococcal Prevnar 13 IM Intramuscular 03/20/2018 Administered Pneumococcal, PPV 23 Unknown 06/10/2009 Administered Pneumococcal,Prevna r 13, PEDS STATE SUPPLIED IM Intramuscular 06/27/2015 Administered Social History Tobacco Use: Social History Observation Description Date Details (start date - stop date) Never Smoker NA - NA Social History Tobacco Use: Social Info Question Answer Notes Smoking Are you a: never smoker Additional Details Category Social Info Options Details General 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: no Past year's travels: -Feb alcohol use: yes 1 wine daily drug use: no Hobbies/Exercise habits: photogr aphy, art, uzbek embroidery Coffee/Tea/Soda: yes 2 tea/d, no sod a or coffee Marital Status experience no Living with alone Pets none smokers in household no Section Notes: never smoked never smoked never smoked never smoked never smoked never smoked never smoked never smoked never smoked never smoked never smoked never smoked never smoked never smoked never smoked never smoked never smoked never smoked never smoked never smoked never smoked never smoked never smoked never smoked never smoked never smoked never smoked never smoked never smoked never smoked never smoked never smoked never smoked never smoked never smoked Problems Problem Type SNOMED Code ICD Code Onset Dates Problem Status W/U Status Risk Notes Problem Vitamin D deficiency (56013593) Vitamin D deficiency (E55.9) Active confirmed Problem 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) Anxiety associated with Depression (F41.8) Active confirmed Problem Depression (740654441) Depression (F32.9) Active confirmed Problem Hypertension (12322055) Hypertension (I10) Active confirmed Problem Unsteady gait (72345710) Unsteady gait (R26.81) Active confirmed Problem Osteopenia (903091680) Osteopenia (M85.80) Active confirmed Problem Hyperlipidemia (20915591) Hyperlipidemia (E78.5) Active confirmed Problem Impaired fasting glucose (109313263) Impaired fasting glucose (R73.01) Active confirmed Problem Trochanteric bursitis of right hip (899972828427871) Trochanteric bursitis, right hip (M70.61) Active confirmed Problem Mixed hyperlipidemia (811943825) Mixed hyperlipidemia (E78.2) Active confirmed Problem Age-related osteoporosis (201986846) Age-related osteoporosis without current pathological fracture (M81.0) Active confirmed Problem Rhinorrhea (34161398) Rhinorrhea (J34.89) Active confirmed Problem Mild recurrent major depression (95886154) Mild episode of recurrent major depressive disorder (F33.0) Active confirmed Problem Dry eyes (395716505) Dry eyes (H04.123) Active confirmed Problem 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) Dilated cbd, acquired (K83.8) Active confirmed Problem Primary osteoarthritis (176281000) Primary osteoarthritis involving multiple joints (M15.9) Active confirmed Plan Of Treatment Pending Test Test Name Order Date Physical Therapy 07/11/2022 Physical Therapy 08/31/2022 CBC W/OUT AUTOMATED DIFF 05/30/2021 URINALYSIS WITH REFLEX MICROSCOPIC 05/30 CBC W/OUT AUTOMATED DIFF 01/12/2022 Future Test Test Name Order Date mammogram, BILATERAL 08/18/2019 XR : SHOULDER min 2 views LEFT -SMA 03/10 Insurance Providers Payer Name Payer Address Payer Phone Subscriber Number Group Number Insured Name Patient Relationship to Insured Coverage Start Date Coverage End Date [employer]AGE [address] [place] [phone] [id number] SONAL COURTNEY Self - patient is the insured 9 Medical (General) History Medical History History ICD Code seasonal allergies arthritis - thumbs only basal cell carcinoma hyperlipidemia depression eye disease - cataracts fatty liver impaired fasting glucose hypertension 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 Representative/Pap exam: Hysterectomy age 34 Mammogram:01/06/1670-sorvgg-Dw [facility] Bone Density:01/09/16- Osteopenia 2/3 site s-Dr Hi Colonoscopy:02/12/14-multiple small & large mouthed diverticula in sigmoid & descending colon-Annalisa Barlow [place]--repeat colonoscopy not recommended for screening purposes Surgical History Surgery Date(Month/Year) Left cataract repair 2013 Rt cataract ext w/IOL 2012 left bursa repair/shoulder 2013 right rotator cuff 2009 2 lumbar disectomies total hysterectomy 2006 partial hysterectomy 1970 appendectomy 1950 Hospitalization History Reason Date(Month/Year) ER outpatient Fell down stairs 10/2014
--- OUTSIDE RECORDS SUMMARY | 2025-05-27 15:05 | XMS_ITS | Clinical Summary ---
Author Organization [facility] Address [address] [place] [address] Phone Care Team Providers Care Loom Technician Name Role Phone [place] Portillo Primary Care [...] HMO REPLACEMENT MEDICARE HMO REPLACEMENT Care Teams Loom Technician Relationship Specialty Start Date End Date Florida Portillo PA [address] [place] [id number] PCP - General Physician Data Review Specialist 12/01/24 Additional Source Comments The information contained in this document represents components of the legal health record. It is not the complete legal health record[facility]
== END 2025-05-27 12:19 | disposition home or self-care (01) ==
LOC: HO.HMCFM 11:29
PROVIDERS: PCP Physician Assistant Medical; Visit Provider Physician Assistant Medical
DX: I80.9 Phlebitis and thrombophlebitis of unspecified site (principal); I83.92 Asymptomatic varicose veins of left lower extremity

== ENCOUNTER → 2025-05-27 11:28 | Outpatient (BNVA) | payer MEDICARE, SELFPAY | PROVIDERS: PCP Physician Assistant Medical; Visit Provider Physician Assistant Medical | DX: I83.92 Asymptomatic varicose veins of left lower extremity (principal); I80.202 Phlebitis and thrombophlebitis of unspecified deep vessels of left lower extremity | CPT/HCPCS: 99212 ==